=== PATIENT | female | born 1935 | race Caucasian/White ===

== ENCOUNTER 2017-06-27 14:50 | Inpatient (IN) | payer MEDICARE, BC ==
[2017-06-27] MEDS ORDERED: Sodium Chloride 0.9% 1,000 ML IV ONE (15:45)
[2017-06-27] MEDS ORDERED: Ondansetron 4 MG/2 ML SDV IVPUSH ONE (15:45)
--- NOTE | 2017-06-27 16:17 | EDM.PDOC ---
ED HPI GENERAL MEDICAL PROBLEM - General Chief Complaint: Abdominal Pain Stated Complaint: VOMITING Time Seen by Provider: 06/27/17 15:26 Source of Information: Reports: Patient History Limitations: Reports: No Limitations - History of Present Illness INITIAL COMMENTS - FREE TEXT/NARRATIVE: 81-year-old female presents for evaluation and treatment of vomiting and epigastric pain. Patient reports that her symptoms started Friday evening. She states that she did not feel well on Friday. She reports discomfort and burning pain in the epigastric area. She states her symptoms have worsened she' s now been vomiting. She also reports she had a "little bit" of diarrhea on Friday and Friday. She also reports a cough. No chest pain, shortness of breath, lightheadedness, syncope, dizziness, hematochezia or hematemesis. Reports her last bowel movement today. Reports that her stools have been more of a blackish green color. Patient did have an influenza vaccine this year. Duration: Day(s): (3) Upper Abdomen Pain Score (Numeric/FACES): 9 - Related Data Allergies Allergy/AdvReac Type Severity Reaction Status Date / Time codeine Allergy Difficulty Verified 06/27/17 16:22 Breathing esomeprazole magnesium Allergy Edema Verified 06/27/17 16:22 [From Nexium] losartan potassium Allergy Hives Verified 06/27/17 16:22 [From Cozaar] COLLINS Inhibitors AdvReac Diarrhea Verified 06/27/17 16:22 aspirin AdvReac Fatigue Verified 06/27/17 16:22 erythromycin base AdvReac Nausea and Verified 06/27/17 16:22 Vomiting meperidine HCl [From Demerol] AdvReac Irritabilit Verified 06/27/17 16:22 y Home Meds: Home Meds Omeprazole 20 mg PO QAM 01/24/15 [History] Ondansetron HCl [Zofran] 4 mg PO Q6HR PRN 01/24/15 [History] Carboxymethylcellulos/Glycerin [Lubricant 0.5-0.9% Eye Drops] 2 drop EYEBOTH TID PRN 01/25/15 [History] Pravastatin [Pravachol] 20 mg PO BEDTIME 01/25/15 [History] Past Medical History Cardiovascular History: Reports: High Cholesterol Other Cardiovascular History: not on meds anymore and is controlling it by diet. Gastrointestinal History: Reports: GERD, Hemorrhoids Genitourinary History: Reports: UTI, Recurrent Musculoskeletal History: Reports: Back Pain, Chronic - Past Surgical History HEENT Surgical History: Reports: Cataract Surgery Other HEENT Surgeries/Procedures: bi-lat eyes GI Surgical History: Reports: Cholecystectomy, Colonoscopy, Other (See Below) Other GI Surgeries/Procedures: small hernis to abdomen Social & Family History - Tobacco Use Smoking Status *Q: Never Smoker Second Hand Smoke Exposure: No - Caffeine Use Caffeine Use: Reports: None - Recreational Drug Use Recreational Drug Use: No ED ROS GENERAL - Review of Systems Review Of Systems: See Below Constitutional: Reports: Malaise Respiratory: Reports: Cough. Denies: Shortness of Breath Cardiovascular: Denies: Chest Pain, Lightheadedness GI/Abdominal: Reports: Abdominal Pain, Diarrhea, Decreased Appetite, Nausea, Vomiting Neurological: Denies: Dizziness, Headache, Syncope ED EXAM, GI/ABD - Physical Exam Exam: See Below Exam Limited By: No Limitations General Appearance: Alert, WD/WN, Moderate Distress Eyes: Bilateral: Normal Appearance Ears: Normal External Exam Nose: Normal Inspection Throat/Mouth: Normal Inspection, Normal Lips, Normal Voice, No Airway Compromise Neck: Normal Inspection Respiratory/Chest: No Respiratory Distress, Lungs Clear, Normal Breath Sounds Cardiovascular: Normal Peripheral Pulses, Regular Rate, Rhythm, No Murmur GI/Abdominal Exam: Normal Bowel Sounds, Soft, Tender (tenderness in the upper left abdomen and epigastric) Neurological: Alert, Oriented, Normal Cognition Psychiatric: Normal Affect, Normal Mood Skin Exam: Warm, Dry, Normal Color EKG INTERPRETATION EKG Date: 06/27/17 Time: 17:15 Rhythm: NSR Rate (Beats/Min): 89 [place]: Normal P-Wave: Present QRS: Normal ST-T: Normal QT: Normal EKG Interpretation Comments: NSR at 89 bpm. PVCs. Prolonged QT interval. Reviewed by myself and Dr. Goodman. Course - Vital Signs Last Recorded V/S: Last Vital Signs Temp 36.3 C 06/27/17 15:23 Pulse 84 06/27/17 15:23 Resp 20 06/27/17 15:23 BP 197/95 H 06/27/17 15:23 Pulse Ox 96 06/27/17 15:23 Orthostatic Blood Pressure [ 149/78 Standing] Orthostatic Blood Pressure [ 142/99 Sitting] Orthostatic Blood Pressure [ 154/70 Supine] - Orders/Labs/Meds Orders: Active Orders 24 hr Category Date Time Status Cardiac Monitoring [RC] . DIRECTED Care 06/27/17 15:46 Active Communication Order [RC] STAT Care 06/27/17 16:22 Active EKG Documentation Completion [RC] ASDIRECTED Care 06/27/17 15:46 Active Orthostatic Vital Signs [RC] ASDIRECTED Care 06/27/17 16:15 Active Chest 1V Frontal [CR] Stat Exams 06/27/17 15:45 Taken Sodium Chloride 0.9% [Normal Saline] 100 ml Med 06/27/17 16:45 Active IV ASDIRECTED EKG 12 Lead [EK] Stat Ther 06/27/17 15:45 Ordered Medication Orders Sodium Chloride (Normal Saline) 100 mls @ 60 mls/hr IV ASDIRECTED VALERIE Last Admin: 06/27/17 16:55 Dose: 60 mls/hr Labs: Laboratory Tests 06/27/17 06/27/17 06/27/17 Range/Units 15:40 15:40 15:40 WBC 4.43 (3.98-10.04) K/mm3 RBC 4.87 (3.98-5.22) M/mm3 Hgb 14.9 (11.2-15.7) gm/L Hct 43.3 (34.1-44.9) % MCV 88.9 (79.4-94.8) fl MCH 30.6 (25.6-32.2) pg MCHC 34.4 (32.2-35.5) g/dl RDW Std Deviation 40.5 (36.4-46.3) fL Plt Count 179 L (182-369) K/mm3 MPV 10.0 (9.4-12.3) fl Neutrophils % (Manual) 76 H (40-60) % Band Neutrophils % 0 (0-10) % Lymphocytes % (Manual) 8 L (20-40) % Atypical Lymphs % 0 % Monocytes % (Manual) 16 H (2-10) % Eosinophils % (Manual) 0 L (0.7-5.8) % Basophils % (Manual) 0 L (0.1-1.2) Platelet Estimate Adequate Plt Morphology Comment Normal RBC Morph Comment Normal Sodium 128 L (136-145) mEq/L Potassium 3.6 (3.5-5.1) mEq/L Chloride 94 L (98-107) mEq/L Carbon Dioxide 23 (21-32) mEq/L Anion Gap 14.6 (5-15) BUN 12 (7-18) mg/dL Creatinine 1.2 H (0.55-1.02) mg/dL Est Cr Clr Drug Dosing 33.65 mL/min Estimated GFR (MDRD) 43 (>60) mL/min BUN/Creatinine Ratio 10.0 L (14-18) Glucose 119 H (83-115) mg/dL Calcium 9.1 (8.5-10.1) mg/dL Magnesium 1.5 L (1.8-2.4) mg/dl Total Bilirubin 0.6 (0.2-1.0) mg/dL AST 24 (15-37) U/L ALT 24 (14-59) U/L Alkaline Phosphatase 66 (46-116) U/L Troponin I < 0.017 (0.00-0.056) ng/mL C-Reactive Protein 2.5 H* (<1.0) mg/dL Total Protein 7.2 (6.4-8.2) g/dl Albumin 3.8 (3.4-5.0) g/dl Globulin 3.4 gm/dL Albumin/Globulin Ratio 1.1 (1-2) Lipase 143 (73-393) U/L Urine Color (Yellow) Urine Appearance (Clear) Urine pH (5.0-8.0) Ur Specific [place] (1.005-1.030) Urine Protein (Negative) Urine Glucose (UA) (Negative) Urine Ketones (Negative) Urine Occult Blood (Negative) Urine Nitrite (Negative) Urine Bilirubin (Negative) Urine Urobilinogen (0.2-1.0) Ur Leukocyte Esterase (Negative) Urine RBC (0-5) /hpf Urine WBC (0-5) /hpf Ur Epithelial Cells (0-5) /hpf Urine Bacteria (FEW) /hpf Urine Mucus (FEW) /hpf 06/27/ Range/Units 16:35 WBC (3.98-10.04) K/mm3 RBC (3.98-5.22) M/mm3 Hgb (11.2-15.7) gm/L Hct (34.1-44.9) % MCV (79.4-94.8) fl MCH (25.6-32.2) pg MCHC (32.2-35.5) g/dl RDW Std Deviation (36.4-46.3) fL Plt Count (182-369) K/mm3 MPV (9.4-12.3) fl Neutrophils % (Manual) (40-60) % Band Neutrophils % (0-10) % Lymphocytes % (Manual) (20-40) % Atypical Lymphs % % Monocytes % (Manual) (2-10) % Eosinophils % (Manual) (0.7-5.8) % Basophils % (Manual) (0.1-1.2) Platelet Estimate Plt Morphology Comment RBC Morph Comment Sodium (136-145) mEq/L Potassium (3.5-5.1) mEq/L Chloride (98-107) mEq/L Carbon Dioxide (21-32) mEq/L Anion Gap (5-15) BUN (7-18) mg/dL Creatinine (0.55-1.02) mg/dL Est Cr Clr Drug Dosing mL/min Estimated GFR (MDRD) (>60) mL/min BUN/Creatinine Ratio (14-18) Glucose (83-115) mg/dL Calcium (8.5-10.1) mg/dL Magnesium (1.8-2.4) mg/dl Total Bilirubin (0.2-1.0) mg/dL AST (15-37) U/L ALT (14-59) U/L Alkaline Phosphatase (46-116) U/L Troponin I (0.00-0.056) ng/mL C-Reactive Protein (<1.0) mg/dL Total Protein (6.4-8.2) g/dl Albumin (3.4-5.0) g/dl Globulin gm/dL Albumin/Globulin Ratio (1-2) Lipase (73-393) U/L Urine Color Yellow (Yellow) Urine Appearance Clear (Clear) Urine pH 6.0 (5.0-8.0) Ur Specific [place] 1.020 (1.005-1.030) Urine Protein Trace H (Negative) Urine Glucose (UA) Negative (Negative) Urine Ketones 2+ H (Negative) Urine Occult Blood 2+ H (Negative) Urine Nitrite Negative (Negative) Urine Bilirubin Negative (Negative) Urine Urobilinogen 0.2 (0.2-1.0) Ur Leukocyte Esterase Negative (Negative) Urine RBC 0-5 (0-5) /hpf Urine WBC 0-5 (0-5) /hpf Ur Epithelial Cells 0-5 (0-5) /hpf Urine Bacteria Few (FEW) /hpf Urine Mucus Moderate H (FEW) /hpf Meds: Medications Generic Name Dose Route Start Last Admin Trade Name Freq PRN Reason Stop Dose Admin Sodium Chloride 100 mls @ 60 mls/hr 06/27/17 16:45 06/27/17 16:55 Normal Saline IV 60 mls/hr ASDIRECTED VALERIE Administration Discontinued Medications Generic Name Dose Route Start Last Admin Trade Name Freq PRN Reason Stop Dose Admin Diatrizoate Meglum/Diatrizoate Sod 90 ml 06/27/17 16:36 06/27/17 16:53 Gastrografin 37% PO 06/27/17 16:37 90 ml ONETIME ONE Administration Sodium Chloride 1,000 mls @ 999 mls/hr 06/27/17 15:45 06/27/17 16:21 Normal Saline IV 06/27/17 16:45 999 mls/hr ONETIME ONE Infusion Iopamidol 90 ml 06/27/17 16:36 06/27/17 16:53 Isovue-370 (76%) IVPUSH 06/27/17 16:37 90 ml ONETIME ONE Administration Metoclopramide HCl 5 mg 06/27/17 17:33 06/27/17 17:42 Reglan IVPUSH 06/27/17 17:34 5 mg ONETIME ONE Administration Ondansetron HCl 4 mg 06/27/17 15:45 06/27/17 15:54 Zofran IVPUSH 06/27/17 15:46 4 mg ONETIME ONE Administration Sodium Chloride 10 ml 06/27/17 16:36 06/27/17 16:55 Saline Flush FLUSH 06/27/17 16:37 10 ml ONETIME ONE Administration - Radiology Interpretation Free Text/Narrative:: CT abdomen and pelvis Technique: Multiple axial sections were obtained from above the dome of the diaphragm inferiorly through the pubic symphysis. Intravenous and oral contrast has been given. Comparison: Previous noncontrast CT study of the abdomen and pelvis performed on 01/31/15. Findings: Visualized lung bases are clear. Moderately large hiatal hernia is seen. Liver shows no focal parenchymal abnormality. Small low density abnormality is noted within the spleen measuring 8 mm. This is vaguely seen on prior study but not as well seen previously but is still likely incidental. Low -density area is noted within the right kidney measuring 1 cm which is felt compatible with a cyst. Additional low density abnormality is seen seen more inferiorly within the right kidney measuring 1 cm which is felt compatible with additional cyst. There is scarring seen within the upper right kidney. Left kidney shows a small exophytic cyst measuring 1.0 cm. Adrenal glands show no nodule. Pancreas is within normal limits. Common bile duct mildly dilated at 1.5 cm which is likely residual from previous cholecystectomy. This finding is stable from prior exam. Aorta shows atherosclerotic change without aneurysmal dilatation. No retroperitoneal adenopathy or mesenteric abnormalities are seen. Small fat- containing umbilical hernia is seen. Appendix is seen which is normal. No pelvic mass or adenopathy is seen. Mild diverticulosis is seen within the sigmoid colon without inflammatory change of diverticulitis. No free fluid is seen. Delayed images shows contrast within nondilated distal ureters and contrast is also seen within the bladder. Bone window settings were reviewed which shows scattered degenerative change throughout the spine. Impression: 1. Incidental findings as noted above. Nothing acute is felt to be present. Chest: Portable view of the chest was obtained. Comparison: No prior chest x-ray. Soft tissue density seen behind the heart most likely due to small hiatal hernia. Heart size is normal. Tortuous thoracic aorta is seen. Lungs are clear. Bony structures are grossly intact. Impression: 1. Incidental findings. Nothing acute is identified on portable chest x-ray. - Re-Assessments/Exams Free Text/Narrative Re-Assessment/Exam: 06/27/17 18:47 Influenza returned positive with type A. Given the patient's positive influenza, hyponatremia and hypomagnesemia I do feel that she should come in to the hospital for short stay. She lives at home by herself. Patient agrees to this. Discussed the case with Dr. An [facility] director of occupational health. Agrees to the admission. Departure - Departure Time of Disposition: 19:00 Disposition: Admitted As Inpatient 67 Condition: Poor Clinical Impression: Dehydration, Hyponatremia, Nausea & vomiting, Hypomagnesemia, Influenza A - Discharge Information Referrals: Ginny Puga MD [Primary Care Provider] - Forms: ED Department Discharge Additional Instructions: Patient admitted to the hospital under Dr. An. - My Orders Last 24 Hours: My Active Orders 06/27/17 15:45 Chest 1V Frontal [CR] Stat EKG 12 Lead [EK] Stat 06/27/17 15:46 Cardiac Monitoring [RC] . DIRECTED EKG Documentation Completion [RC] ASDIRECTED 06/27/17 16:15 Orthostatic Vital Signs [RC] ASDIRECTED 06/27/17 16:22 Communication Order [RC] STAT 06/27/17 16:45 Sodium Chloride 0.9% [Normal Saline] 100 ml IV ASDIRECTED - Assessment/Plan Last 24 Hours: My Active Orders 06/27/17 15:45 Chest 1V Frontal [CR] Stat EKG 12 Lead [EK] Stat 06/27/17 15:46 Cardiac Monitoring [RC] . DIRECTED EKG Documentation Completion [RC] ASDIRECTED 06/27/17 16:15 Orthostatic Vital Signs [RC] ASDIRECTED 06/27/17 16:22 Communication Order [RC] STAT 06/27/17 16:45 Sodium Chloride 0.9% [Normal Saline] 100 ml IV ASDIRECTED
[2017-06-27] MEDS ORDERED: Diatrizoate Meglumine/Diatrizoate Sodium 37% 120 ML Bottle PO ONE (16:36)
[2017-06-27] MEDS ORDERED: Sodium Chloride 0.9% 10 ML Syringe FLUSH ONE (16:36)
[2017-06-27] MEDS ORDERED: Iopamidol 755 Mg/ML 100 ML Bottle IVPUSH ONE (16:36)
[2017-06-27] MEDS ORDERED: Sodium Chloride 0.9% 100 ML IV SCH (16:45)
[2017-06-27] MEDS ORDERED: Metoclopramide 10 MG/2 ML SDV IVPUSH ONE (17:33)
--- NOTE | 2017-06-27 17:36 | CT ---
CT abdomen and pelvis Technique: Multiple axial sections were obtained from above the dome of the diaphragm inferiorly through the pubic symphysis. Intravenous and oral contrast has been given. Comparison: Previous noncontrast CT study of the abdomen and pelvis performed on 01/31/15. Findings: Visualized lung bases are clear. Moderately large hiatal hernia is seen. Liver shows no focal parenchymal abnormality. Small low density abnormality is noted within the spleen measuring 8 mm. This is vaguely seen on prior study but not as well seen previously but is still likely incidental. Low-density area is noted within the right kidney measuring 1 cm which is felt compatible with a cyst. Additional low density abnormality is seen seen more inferiorly within the right kidney measuring 1 cm which is felt compatible with additional cyst. There is scarring seen within the upper right kidney. Left kidney shows a small exophytic cyst measuring 1.0 cm. Adrenal glands show no nodule. Pancreas is within normal limits. Common bile duct mildly dilated at 1.5 cm which is likely residual from previous cholecystectomy. This finding is stable from prior exam. Aorta shows atherosclerotic change without aneurysmal dilatation. No retroperitoneal adenopathy or mesenteric abnormalities are seen. Small fat-containing umbilical hernia is seen. Appendix is seen which is normal. No pelvic mass or adenopathy is seen. Mild diverticulosis is seen within the sigmoid colon without inflammatory change of diverticulitis. No free fluid is seen. Delayed images shows contrast within nondilated distal ureters and contrast is also seen within the bladder. Bone window settings were reviewed which shows scattered degenerative change throughout the spine. Impression: 1. Incidental findings as noted above. Nothing acute is felt to be present. Diagnostic code #2
[2017-06-27] MEDS ORDERED: Ibuprofen 400 MG Tab PO PRN (20:45)
[2017-06-27] MEDS ORDERED: LORazepam 2 MG/ML MDV IV PRN (20:45)
[2017-06-27] MEDS ORDERED: Bisacodyl 5 MG Tab PO PRN (20:45)
[2017-06-27] MEDS ORDERED: Albuterol/Ipratropium 3.0-0.5 MG/3 ML Neb Soln NEB PRN (20:45)
[2017-06-27] MEDS ORDERED: Polyethylene Glycol 3350 Powder 17 GM Packet PO PRN (20:45)
[2017-06-27] MEDS ORDERED: Docusate Sodium 100 MG Cap PO PRN (20:45)
[2017-06-27] MEDS ORDERED: Promethazine 6.25 MG in Sodium Chloride 0.9% 50 ML IV PRN (20:45)
[2017-06-27] MEDS ORDERED: Hypromellose 0.5% Ophth Soln 15 ML Bottle EYEBOTH PRN (20:52)
[2017-06-27] MEDS ORDERED: Codeine/guaiFENesin 100-10 MG/5 ML Syrup 5 ML Cup PO PRN (20:54)
[2017-06-27] MEDS ORDERED: Benzocaine/Cetylpyridinium/Menthol Lozenge MUCMEM PRN (20:59)
[2017-06-27] MEDS ORDERED: Pneumococcal Polyvalent-23 Vaccine 0.5 ML SDV IM ONE (21:00)
[2017-06-27] MEDS ORDERED: Scopolamine 1.5 MG Transdermal Patch TRDERM PRN (21:01)
--- NOTE | 2017-06-27 21:04 | PCM.HP ---
H&P History of Present Illness - General Date of Service: 06/27/17 Admit Problem/Dx: Admission Diagnosis/Problem Admission Diagnosis/Problem Influenza due to influenza A virus Source of Information: Patient, Old Records, Provider, RN Notes Reviewed History Limitations: Reports: No Limitations - History of Present Illness Initial Comments - Free Text/Narative: This is an 81 yo pleasant elderly white female with past medical hx/o hypercholesterolemia, GERD, hemorrhoids, recurrent UTI, and chronic back pain who presents to the emergency department for evaluation of nausea and vomiting associated with cough, nasal congestion, epigastric pain and now watery diarrhea. Her symptoms started this past Friday and have progressively gotten worse. Patient still able to eat or drink. She denies any recent travel. No unusual diet or drinks. She denies any sick contact. She further denies any shortness of breath, chest pain, lightheadedness, syncope , dizziness, fever or chills. No skin rash, muscle aches or joint pains. Her initial workup in emergency department shows a CBC remarkable for platelet of 179, neutrophils of 76%, lymphocytes of 8%, and monocytes of 16%. Her UA is not suggestive for UTI. She was positive for influenza A. Chest x-ray shows no acute abnormal findings. Abdominal pelvis CT scan report reads nothing acute is felt to be present. Patient is being admitted for acute viral illness. She is CPR only. Upper Abdomen Pain Score (Numeric/FACES): 9 - Related Data Allergies/Adverse Reactions: Allergies Allergy/AdvReac Type Severity Reaction Status Date / Time codeine Allergy Difficulty Verified 06/27/17 20:41 Breathing esomeprazole magnesium Allergy Edema Verified 06/27/17 20:41 [From Nexium] losartan potassium Allergy Hives Verified 06/27/17 20:41 [From Cozaar] COLLINS Inhibitors AdvReac Diarrhea Verified 06/27/17 20:41 aspirin AdvReac Fatigue Verified 06/27/17 20:41 erythromycin base AdvReac Nausea and Verified 06/27/17 20:41 Vomiting meperidine HCl [From Demerol] AdvReac Irritabilit Verified 06/27/17 20:41 y Home Medications: Home Meds Omeprazole 20 mg PO QAM 01/24/15 [History] Ondansetron HCl [Zofran] 4 mg PO Q6HR PRN 01/24/15 [History] Carboxymethylcellulos/Glycerin [Lubricant 0.5-0.9% Eye Drops] 2 drop EYEBOTH TID PRN 01/25/15 [History] Pravastatin [Pravachol] 20 mg PO BEDTIME 01/25/15 [History] Past Medical History Cardiovascular History: Reports: High Cholesterol Other Cardiovascular History: not on meds anymore and is controlling it by diet. Gastrointestinal History: Reports: GERD, Hemorrhoids Genitourinary History: Reports: UTI, Recurrent BUSINESS TAX[employer] SPECIALIST History: Reports: Musculoskeletal History: Reports: Back Pain, Chronic Endocrine/Metabolic History: Reports: Obesity/BMI 30+ - Infectious Disease History Infectious Disease History: Reports: Chicken Pox, Influenza, Measles, Mumps - Past Surgical History HEENT Surgical History: Reports: Cataract Surgery Other HEENT Surgeries/Procedures: bi-lat eyes Cardiovascular Surgical History: Reports: None GI Surgical History: Reports: Cholecystectomy, Colonoscopy, Other (See Below) Other GI Surgeries/Procedures: small hernis to abdomen Female Surgical History: Reports: None Endocrine Surgical History: Reports: None Musculoskeletal Surgical History: Reports: None Social & Family History - Family History Family Medical History: Noncontributory - Tobacco Use Smoking Status *Q: Never Smoker Second Hand Smoke Exposure: No - Caffeine Use Caffeine Use: Reports: None - Recreational Drug Use Recreational Drug Use: No H&P Review of Systems - Review of Systems: Review Of Systems: See Below General: Reports: Malaise. Denies: Fever, Chills HEENT: Reports: Post Nasal Drip, Sinus Congestion, Other (Congestion). Denies: Contact Lenses, Dysphasia, Ear Pain, Eye Pain, Headaches, Hearing Changes, Sore Throat, Visual Changes Pulmonary: Reports: Cough Cardiovascular: Denies: Chest Pain, Palpitations, Dyspnea on Exertion Gastrointestinal: Reports: Abdominal Pain, Diarrhea, Decreased Appetite, Nausea , Vomiting Exam - Exam Exam: See Below - Vital Signs Vital Signs: Last Vital Signs Temp 36.3 C 06/27/17 15:23 Pulse 84 06/27/17 15:23 Resp 20 06/27/17 15:23 BP 197/95 H 06/27/17 15:23 Pulse Ox 96 06/27/17 15:23 Weight: 96.162 kg - Exam General: Alert, Oriented, Cooperative, Lethargic. No: Mild Distress HEENT: Conjunctiva Clear, EACs Clear, Hearing Intact, Mucosa Moist & [place], Nares Patent, Normal Nasal Septum, Posterior Pharynx Clear, Pupils Equal, Pupils Reactive, TMs Clear Neck: Supple, Trachea Midline, +2 Carotid Pulse wo Bruit Lungs: Clear to Auscultation, Normal Respiratory Effort Cardiovascular: Regular Rate, Regular Rhythm GI/Abdominal Exam: Normal Bowel Sounds, Soft, Non-Tender, No Organomegaly, No Distention, No Abnormal Bruit, No Mass, Tender. No: Guarding, Rigid, Rebound (Female) Exam: Deferred Rectal (Female) Exam: Deferred Back Exam: Normal Inspection, Decreased Range of Motion Extremities: Normal Inspection, Normal Range of Motion, Non-Tender, No Pedal Edema, Normal Capillary Refill Peripheral Pulses: 2+: Posterior Tibial (L), Posterior Tibial (R), Dorsalis Pedis (L), Dorsalis Pedis (R) Skin: Warm, Dry, Intact Neuro Extensive - Mental Status: Oriented x3, Normal Cognition, Memory Intact Neuro Extensive - Motor, Sensory, Reflexes: CN II-XII Intact, Normal Gait Psychiatric: Alert, Normal Affect, Normal Mood - Patient Data Result Diagrams: 06/28/17 05:55 06/27/17 15:40 EKG INTERPRETATION EKG Date: 06/27/17 Time: 17:15 Rhythm: NSR Rate (Beats/Min): 89 [place]: Normal P-Wave: Present QRS: Normal ST-T: Normal QT: Prolonged *Q Meaningful Use (ADM) - VTE *Q VTE Criteria *Q: - Stroke *Q Stroke Criteria *Q: - AMI *Q AMI Criteria *Q: Problem List Initiated/Reviewed/Updated: Yes Orders Last 24hrs: Active Orders 24 hr Category Date Time Status Patient Status [ADT] Routine ADT 06/27/17 19:54 Active Antiembolic Devices [RC] PER UNIT ROUTINE Care 06/27/17 20:50 Ordered Height and Weight [RC] DAILY Care 06/27/17 20:45 Ordered Intake and Output [RC] QSHIFT Care 06/27/17 20:48 Ordered Oxygen Therapy [RC] PRN Care 06/27/17 20:45 Ordered RT Aerosol Therapy [RC] ASDIRECTED Care 06/27/17 20:50 Ordered Up With Assistance [RC] ASDIRECTED Care 06/27/17 20:45 Ordered VTE/DVT Education [RC] PER UNIT ROUTINE Care 06/27/17 20:45 Ordered Vital Signs [RC] Q4H Care 06/27/17 20:45 Ordered Consult to Medical Chief Technician [CONS] Routine Cons 06/27/17 20:51 Ordered OT Evaluation and Treatment [CONS] Routine Cons 06/27/17 20:51 Ordered PT Evaluation and Treatment [CONS] Routine Cons 06/27/17 20:51 Ordered Regular Diet [DIET] Diet 06/27/17 Dinner Ordered BASIC METABOLIC PANEL,BMP [CHEM] AM Lab 06/28/17 05:11 Ordered BASIC METABOLIC PANEL,BMP [CHEM] AM Lab 06/29/17 05:11 Ordered BASIC METABOLIC PANEL,BMP [CHEM] AM Lab 06/30/17 05:11 Ordered C-REACTIVE PROTEIN [CHEM] AM Lab 06/28/17 05:11 Ordered C-REACTIVE PROTEIN [CHEM] AM Lab 06/29/17 05:11 Ordered C-REACTIVE PROTEIN [CHEM] AM Lab 06/30/17 05:11 Ordered CBC WITH AUTO DIFF [HEME] AM Lab 06/28/17 05:11 Ordered CBC WITH AUTO DIFF [HEME] AM Lab 06/29/17 05:11 Ordered CBC WITH AUTO DIFF [HEME] AM Lab 06/30/17 05:11 Ordered CULTURE SPUTUM + SMEAR [RM] Routine Lab 06/27/17 20:57 Uncollected MAGNESIUM [CHEM] AM Lab 06/28/17 05:11 Ordered MAGNESIUM [CHEM] AM Lab 06/29/17 05:11 Ordered MAGNESIUM [CHEM] AM Lab 06/30/17 05:11 Ordered Albuterol/Ipratropium [DuoNeb 3.0-0.5 MG/3 ML] Med 06/27/17 20:45 Ordered 3 ml NEB Q4H PRN Bisacodyl [Dulcolax] Med 06/27/17 20:45 Ordered 5 mg PO DAILY PRN Carboxymethylcellulos/Glycerin [Lubricant 0.5-0.9% Eye Med 06/27/17 20:52 Ordered Drops] 2 drop EYEBOTH TID PRN Codeine/guaiFENesin [Robitussin AC] Med 06/27/17 20:54 Ordered 5 ml PO Q4H PRN Dextrose 5%-Normal Saline @ 100 MLS/HR(1000ml) Med 06/27/17 21:00 Ordered Dextrose 5%-0.9% NaCl [Dextrose 5%-Normal Saline] 1,000 ml IV ASDIRECTED Docusate Sodium [Colace] Med 06/27/17 20:45 Ordered 100 mg PO BID PRN Docusate Sodium/Sennosides [Senna Plus] Med 06/27/17 20:45 Ordered 1 tab PO BID PRN HYDROmorphone [Dilaudid] Med 06/27/17 20:45 Ordered 0.25 mg IVPUSH Q2H PRN Ibuprofen [Motrin] Med 06/27/17 20:45 Ordered 400 mg PO Q6H PRN LORazepam [Ativan] Med 06/27/17 20:45 Ordered 0.25 mg IV Q6H PRN Loratadine [Claritin] Med 06/27/17 21:00 Ordered 10 mg PO BEDTIME Megestrol [Megace 40 MG/ML Susp] Med 06/28/17 09:00 Ordered 400 mg PO DAILY Multivitamins,Therapeutic [Thera] Med 06/28/17 09:00 Ordered 1 each PO DAILY Omeprazole Med 06/28/17 08:00 Ordered 20 mg PO QAM Ondansetron [Zofran] Med 06/27/17 20:45 Ordered 4 mg IV Q4H PRN Oxymetazoline [Afrin Original 0.05% Nasal [place]] Med 06/27/17 20:54 Ordered 15 ml RAMY Q12HR PRN Pneumococcal Polyvalent-23 Vac [Pneumovax 23] Med 06/27/17 20:45 Once 0.5 ml IM .ONCE ONE Polyethylene Glycol 3350 [MiraLAX] Med 06/27/17 20:45 Ordered 17 gm PO DAILY PRN Pravastatin Med 06/27/17 21:00 Ordered 20 mg PO BEDTIME Promethazine [Phenergan] 6.25 mg Med 06/27/17 20:45 Ordered Sodium Chloride 0.9% [Normal Saline] 50 ml IV Q6H Temazepam [Restoril] Med 06/27/17 20:45 Ordered 7.5 mg PO BEDTIME PRN oxyCODONE Med 06/27/17 20:45 Ordered 5 mg PO Q4H PRN Sequential Compression Device [OM.PC] Per Unit Routine Oth 06/27/17 20:48 Ordered Resuscitation Status Routine Resus Stat 06/27/17 20:45 Ordered Medication Orders Albuterol/Ipratropium (Duoneb 3.0-0.5 Mg/3 Ml) 3 ml NEB Q4H PRN PRN Reason: Shortness Of Breath/wheezing Bisacodyl (Dulcolax) 5 mg PO DAILY PRN PRN Reason: Constipation Docusate Sodium (Colace) 100 mg PO BID PRN PRN Reason: Constipation Guaifenesin/Codeine Phosphate (Robitussin Ac) 5 ml PO Q4H PRN PRN Reason: Cough Hydromorphone HCl (Dilaudid) 0.25 mg IVPUSH Q2H PRN PRN Reason: Pain (severe 7-10) Sodium Chloride (Normal Saline) 100 mls @ 60 mls/hr IV ASDIRECTED [facility] Last Admin: 06/27/17 16:55 Dose: 60 mls/hr Promethazine HCl 6.25 mg/ (Sodium Chloride) 50.25 mls @ 100 mls/hr IV Q6H PRN PRN Reason: Nausea/Vomiting Dextrose/Sodium Chloride (Dextrose 5%-Normal Saline) 1,000 mls @ 100 mls/hr IV ASDIRECTED [facility] Ibuprofen (Motrin) 400 mg PO Q6H PRN PRN Reason: Pain (mild 1-3) Loratadine (Claritin) 10 mg PO BEDTIME [facility] Lorazepam (Ativan) 0.25 mg IV Q6H PRN PRN Reason: Anxiety Megestrol Acetate (Megace 40 Mg/Ml Susp) 400 mg PO DAILY [facility] Multivitamins (Thera) 1 each PO DAILY [facility] Non-Formulary Medication (Carboxymethylcellulos/Glycerin [Lubricant 0.5-0.9% Eye Drops]) 2 drop EYEBOTH TID PRN PRN Reason: Dry Eyes Non-Formulary Medication (Omeprazole) 20 mg PO QAM [facility] Non-Formulary Medication (Pravastatin) 20 mg PO BEDTIME [facility] Ondansetron HCl (Zofran) 4 mg IV Q4H PRN PRN Reason: Nausea/Vomiting Oxycodone HCl (Oxycodone) 5 mg PO Q4H PRN PRN Reason: Pain (moderate 4-6) Oxymetazoline HCl (Afrin Original 0.05% Nasal [place]) 15 ml RAMY Q12HR PRN PRN Reason: Congestion Pneumococcal Polyvalent Vaccine (Pneumovax 23) 0.5 ml IM .ONCE ONE Stop: 06/27/17 21:01 Polyethylene Glycol (Miralax) 17 gm PO DAILY PRN PRN Reason: Constipation Senna/Docusate Sodium (Senna Plus) 1 tab PO BID PRN PRN Reason: Constipation Temazepam (Restoril) 7.5 mg PO BEDTIME PRN PRN Reason: Sleep Assessment/Plan Comment:: Assessment/Plan: Acute: Influenza A Infection - Onset of illness was Friday - No Antiviral recommended; she is now outside the 48 hrs window - Continue supportive care URI - likely 2/2 Viral Illness - Nasal congestion, cough, feels "gaggy" (hyperactive gag reflex) - Clear oropharyngeal exam - Afrin nasal spray PRN BID, Guaifenasin/Codeine 5 mf po Q4 PRN, Cepacol 1 tab po Q4H for sore throat - Supportive care Mild Hyponatremia - Na 128 - Currently hydrating with D5NS at 100 cc/hr - Salt tab 1 tab po BID - Monitor Hypomagnesemia - Mg 1.5 - Pharmacy to replete and monitor Abn/Pelvis CT Scan Ffindings - Moderately large hiatal hernia - Small low-density measuring a centimeter in the spleen - Low density area within the right kidney measuring 1 cm felt to be a cyst - Low-density abnormality inferior routine the right kidney measuring 1 cm felt to be an additional cyst - Scarring seen within the right upper kidney - Left kidney shows a small exophytic cyst measuring 1 cm - Aorta shows atherosclerotic changes without aneurysmal dilatation - Small fat-containing umbilical hernia - Mild diverticulosis within the sigmoid colon without inflammatory change of the diverticulitis Chronic: HLD GERD Recurrent UTI Back Pain Plan; Admit to Med-Surg Resume Home Meds Regular diet Routine AM Labs PT/OT consult for d/c planning Code status: CPR only
[2017-06-27] MEDS ORDERED: Magnesium Sulfate/Water 2 GM in Premix Bag 1 BAG IV ONE (21:32)
[2017-06-27] MEDS: Potassium Chloride/Sodium Chloride Tab PO SCH (21:48)
[2017-06-27] MEDS: Loratadine 10 MG Tab PO SCH (21:49)
[2017-06-27] MEDS: Simvastatin 10 MG Tab PO SCH (21:49)
[2017-06-27] MEDS: Oxymetazoline 0.05% Nasal Spray 15 ML Bottle NAS PRN (21:51)
[2017-06-28] MEDS: Dextrose 5%-0.9% NaCl 1,000 ML IV SCH ×3 (00:15→20:01)
[2017-06-28] MEDS: Temazepam 7.5 MG Cap PO PRN (00:52)
--- NOTE | 2017-06-28 06:54 | PCM.PN ---
- General Info Date of Service: 06/28/17 Admission Dx/Problem (Free Text): Admission Diagnosis/Problem Admission Diagnosis/Problem Influenza due to influenza A virus Subjective Update: Follow Up Functional Status: Reports: Pain Controlled, Ambulating, Urinating. Denies: New Symptoms - Review of Systems General: Reports: Malaise. Denies: Fever, Chills HEENT: Reports: No Symptoms Pulmonary: Reports: Shortness of Breath Gastrointestinal: Reports: Decreased Appetite, Vomiting. Denies: Abdominal Pain , Difficulty Swallowing Genitourinary: Reports: No Symptoms Musculoskeletal: Reports: No Symptoms Skin: Denies: Cyanosis, Mottled, Pallor, Diaphoresis, Rash Neurological: Denies: Confusion, Difficulty Walking, Weakness, Gait Disturbance Psychiatric: Denies: Anxiety, Agitation, Hallucinations Systems Review Comment:: No overnight issues. She slept pretty good. However she got nauseous and vomited this morning after taking in megace. She did not like the taste. Currently, her symptoms are easing up. She denies any other complaints. Her K is slightly low at 3.4. - Patient Data Vitals - Most Recent: Last Vital Signs Temp 36.7 C 06/28/17 00:51 Pulse 68 06/28/17 00:51 Resp 18 06/28/17 00:51 BP 125/44 L 06/28/17 00:51 Pulse Ox 96 06/28/17 00:51 Weight - Most Recent: 96.162 kg Lab Results Last 24 Hours: Laboratory Results - last 24 hr 06/28/17 Range/Units 05:55 WBC 4.40 (3.98-10.04) K/mm3 RBC 4.83 (3.98-5.22) M/mm3 Hgb 14.5 (11.2-15.7) gm/L Hct 43.9 (34.1-44.9) % MCV 90.9 (79.4-94.8) fl MCH 30.0 (25.6-32.2) pg MCHC 33.0 (32.2-35.5) g/dl RDW Std Deviation 41.9 (36.4-46.3) fL Plt Count 186 (182-369) K/mm3 MPV 10.1 (9.4-12.3) fl Neut % (Auto) 73.6 H (34.0-71.1) % Lymph % (Auto) 10.5 L (19.3-51.7) % [place] % (Auto) 14.5 H (4.7-12.5) % Eos % (Auto) 0.5 L (0.7-5.8) Baso % (Auto) 0.2 (0.1-1.2) % Neut # (Auto) 3.24 (1.56-6.13) K/mm3 Lymph # (Auto) 0.46 L (1.18-3.74) K/mm3 [place] # (Auto) 0.64 H (0.24-0.36) K/mm3 Eos # (Auto) 0.02 L (0.04-0.36) K/mm3 Baso # (Auto) 0.01 (0.01-0.08) K/mm3 Med Orders - Current: Current Medications Albuterol/Ipratropium (Duoneb 3.0-0.5 Mg/3 Ml) 3 ml NEB Q4H PRN PRN Reason: Shortness Of Breath/wheezing Artificial Tears (Isopto Tears 0.5% Ophth Soln) 0 ml EYEBOTH TID PRN PRN Reason: Dry Eyes Benzocaine/Menthol (Cepacol Sore Throat) 1 lozenge MUCMEM Q4HR PRN PRN Reason: Sore Throat Last Admin: 06/27/17 21:53 Dose: 1 lozenge Bisacodyl (Dulcolax) 5 mg PO DAILY PRN PRN Reason: Constipation Docusate Sodium (Colace) 100 mg PO BID PRN PRN Reason: Constipation Guaifenesin/Codeine Phosphate (Robitussin Ac) 5 ml PO Q4H PRN PRN Reason: Cough Last Admin: 06/27/17 22:09 Dose: 5 ml Hydromorphone HCl (Dilaudid) 0.25 mg IVPUSH Q2H PRN PRN Reason: Pain (severe 7-10) Promethazine HCl 6.25 mg/ (Sodium Chloride) 50.25 mls @ 100 mls/hr IV Q6H PRN PRN Reason: Nausea/Vomiting Dextrose/Sodium Chloride (Dextrose 5%-Normal Saline) 1,000 mls @ 100 mls/hr IV ASDIRECTED [facility] Last Admin: 06/28/17 00:15 Dose: 100 mls/hr Ibuprofen (Motrin) 400 mg PO Q6H PRN PRN Reason: Pain (mild 1-3) Last Admin: 06/27/17 22:08 Dose: 400 mg Loratadine (Claritin) 10 mg PO BEDTIME [facility] Last Admin: 06/27/17 21:49 Dose: 10 mg Lorazepam (Ativan) 0.25 mg IV Q6H PRN PRN Reason: Anxiety Megestrol Acetate (Megace 40 Mg/Ml Susp) 400 mg PO DAILY [facility] Multivitamins (Thera) 1 each PO DAILY [facility] Ondansetron HCl (Zofran) 4 mg IV Q4H PRN PRN Reason: Nausea/Vomiting Oral Electrolytes (Thermotabs) 1 each PO BIDMEALS [facility] Last Admin: 06/27/17 21:48 Dose: 1 each Oxycodone HCl (Oxycodone) 5 mg PO Q4H PRN PRN Reason: Pain (moderate 4-6) Oxymetazoline HCl (Afrin Original 0.05% Nasal [place]) 1 - 2 ml RAMY Q12HR PRN PRN Reason: Congestion Last Admin: 06/27/17 21:51 Dose: 1 spray Pantoprazole Sodium (Protonix) 40 mg PO DAILY@0700 [facility] Polyethylene Glycol (Miralax) 17 gm PO DAILY PRN PRN Reason: Constipation Scopolamine (Transderm-Scop) 1.5 mg TRDERM Q72H PRN PRN Reason: Nausea/Vomiting Senna/Docusate Sodium (Senna Plus) 1 tab PO BID PRN PRN Reason: Constipation Simvastatin (Zocor) 10 mg PO BEDTIME [facility] Last Admin: 06/27/17 21:49 Dose: Not Given Temazepam (Restoril) 7.5 mg PO BEDTIME PRN PRN Reason: Sleep Last Admin: 06/28/17 00:52 Dose: 7.5 mg Discontinued Medications Diatrizoate Meglum/Diatrizoate Sod (Gastrografin 37%) 90 ml PO ONETIME ONE Stop: 06/27/17 16:37 Last Admin: 06/27/17 16:53 Dose: 90 ml Sodium Chloride (Normal Saline) 1,000 mls @ 999 mls/hr IV ONETIME ONE Stop: 06/27/17 16:45 Last Infusion: 06/27/17 16:21 Dose: 999 mls/hr Sodium Chloride (Normal Saline) 100 mls @ 60 mls/hr IV ASDIRECTED [facility] Last Admin: 06/27/17 16:55 Dose: 60 mls/hr Magnesium Sulfate 2 gm/ Premix 50 mls @ 25 mls/hr IV ONETIME ONE Stop: 06/27/17 23:31 Last Admin: 06/27/17 21:49 Dose: 25 mls/hr Iopamidol (Isovue-370 (76%)) 90 ml IVPUSH ONETIME ONE Stop: 06/27/17 16:37 Last Admin: 06/27/17 16:53 Dose: 90 ml Metoclopramide HCl (Reglan) 5 mg IVPUSH ONETIME ONE Stop: 06/27/17 17:34 Last Admin: 06/27/17 17:42 Dose: 5 mg Ondansetron HCl (Zofran) 4 mg IVPUSH ONETIME ONE Stop: 06/27/17 15:46 Last Admin: 06/27/17 15:54 Dose: 4 mg Pneumococcal Polyvalent Vaccine (Pneumovax 23) 0.5 ml IM .ONCE ONE Stop: 06/27/17 21:01 Sodium Chloride (Saline Flush) 10 ml FLUSH ONETIME ONE Stop: 06/27/17 16:37 Last Admin: 06/27/17 16:55 Dose: 10 ml - Exam General: Alert, Oriented, Cooperative, No Acute Distress HEENT: Pupils Equal, Pupils Reactive, EOMI, Mucous Membr. Moist/[place] Neck: Supple, Trachea Midline, No JVD Lungs: Clear to Auscultation, Normal Respiratory Effort Cardiovascular: Regular Rate, Regular Rhythm GI/Abdominal Exam: Normal Bowel Sounds, Soft, Non-Tender, No Organomegaly, No Distention, No Abnormal Bruit, No Mass, Pelvis Stable (Female) Exam: Deferred Back Exam: Normal Inspection, Decreased Range of Motion Extremities: Normal Inspection, Normal Range of Motion, Non-Tender, No Pedal Edema, Normal Capillary Refill Peripheral Pulses: 2+: Dorsalis Pedis (L), Dorsalis Pedis (R) Skin: Warm, Dry, Intact Neurological: No New Focal Deficit Psy/Mental Status: Alert, Normal Affect, Normal Mood - Problem List Review Problem List Initiated/Reviewed/Updated: Yes - My Orders Last 24 Hours: My Active Orders 06/27/17 20:45 Height and Weight [RC] 04 Oxygen Therapy [RC] PRN Up With Assistance [RC] ASDIRECTED VTE/DVT Education [RC] PER UNIT ROUTINE Vital Signs [RC] 20,00,04,08,12,16 Albuterol/Ipratropium [DuoNeb 3.0-0.5 MG/3 ML] 3 ml NEB Q4H PRN Bisacodyl [Dulcolax] 5 mg PO DAILY PRN Docusate Sodium [Colace] 100 mg PO BID PRN Docusate Sodium/Sennosides [Senna Plus] 1 tab PO BID PRN HYDROmorphone [Dilaudid] 0.25 mg IVPUSH Q2H PRN Ibuprofen [Motrin] 400 mg PO Q6H PRN LORazepam [Ativan] 0.25 mg IV Q6H PRN Ondansetron [Zofran] 4 mg IV Q4H PRN Polyethylene Glycol 3350 [MiraLAX] 17 gm PO DAILY PRN Promethazine [Phenergan] 6.25 mg Sodium Chloride 0.9% [Normal Saline] 50 ml IV Q6H Temazepam [Restoril] 7.5 mg PO BEDTIME PRN oxyCODONE 5 mg PO Q4H PRN Resuscitation Status Routine 06/27/17 20:48 Intake and Output [RC] 04,16 Sequential Compression Device [OM.PC] Per Unit Routine 06/27/17 20:50 Antiembolic Devices [RC] PER UNIT ROUTINE RT Aerosol Therapy [RC] ASDIRECTED 06/27/17 20:51 Consult to Catering Cook [CONS] Routine OT Evaluation and Treatment [CONS] Routine PT Evaluation and Treatment [CONS] Routine 06/27/17 20:52 Hypromellose [Isopto Tears 0.5% Ophth Soln] 0 ml EYEBOTH TID PRN 06/27/17 20:54 Codeine/guaiFENesin [Robitussin AC] 5 ml PO Q4H PRN Oxymetazoline [Afrin Original 0.05% Nasal [place]] 1 - 2 ml RAMY Q12HR PRN 06/27/17 20:57 CULTURE SPUTUM + SMEAR [RM] Routine 06/27/17 20:59 Benzocaine/Cetylpyrd/Menthol [Cepacol Sore Throat] 1 lozenge MUCMEM Q4HR PRN 06/27/17 21:00 Dextrose 5%-0.9% NaCl [Dextrose 5%-Normal Saline] 1,000 ml IV ASDIRECTED Loratadine [Claritin] 10 mg PO BEDTIME Simvastatin [Zocor] 10 mg PO BEDTIME 06/27/17 21:01 Scopolamine [Transderm-Scop] 1.5 mg TRDERM Q72H PRN 06/27/17 21:23 Potassium Chloride/NaCl [Thermotabs] 1 each PO BIDMEALS 06/27/17 Dinner Regular Diet [DIET] 06/28/17 05:55 BASIC METABOLIC PANEL,BMP [CHEM] AM C-REACTIVE PROTEIN [CHEM] AM MAGNESIUM [CHEM] AM 06/28/17 07:00 Pantoprazole [ProTONIX] 40 mg PO DAILY@0700 06/28/17 09:00 Megestrol [Megace 40 MG/ML Susp] 400 mg PO DAILY Multivitamins,Therapeutic [Thera] 1 each PO DAILY 06/29/17 05:11 BASIC METABOLIC PANEL,BMP [CHEM] AM C-REACTIVE PROTEIN [CHEM] AM CBC WITH AUTO DIFF [HEME] AM MAGNESIUM [CHEM] AM 06/30/17 05:11 BASIC METABOLIC PANEL,BMP [CHEM] AM C-REACTIVE PROTEIN [CHEM] AM CBC WITH AUTO DIFF [HEME] AM MAGNESIUM [CHEM] AM - Plan Plan:: Assessment/Plan: Acute: Influenza A Infection - Onset of illness was Friday - No Antiviral recommended; she is now outside the 48 hrs window - Continue supportive care URI, Improved - likely 2/2 Viral Illness - Nasal congestion, cough, feels "gaggy" (hyperactive gag reflex) - Clear oropharyngeal exam - Continue Afrin nasal spray PRN BID, Guaifenasin/Codeine 5 mf po Q4 PRN, Cepacol 1 tab po Q4H for sore throat - Supportive care S/p Nausea/Vomiting - Medications induced - D/c Megace and start oral Marinol TID - PRN anti-emesis meds Mild Hypokalemia - K 3.4 - Pharmacy to replete and monitor Abn/Pelvis CT Scan Findings - Moderately large hiatal hernia - Small low-density measuring a centimeter in the spleen - Low density area within the right kidney measuring 1 cm felt to be a cyst - Low-density abnormality inferior routine the right kidney measuring 1 cm felt to be an additional cyst - Scarring seen within the right upper kidney - Left kidney shows a small exophytic cyst measuring 1 cm - Aorta shows atherosclerotic changes without aneurysmal dilatation - Small fat-containing umbilical hernia - Mild diverticulosis within the sigmoid colon without inflammatory change of the diverticulitis Resolved: Mild Hyponatremia - Na 128 --> 136 - Currently hydrating with D5NS at 100 cc/hr - Salt tab 1 tab po BID - Monitor Hypomagnesemia - Mg 1.5 --> 2.2 - Pharmacy to replete and monitor Chronic: HLD GERD Recurrent UTI Back Pain Plan; She looks clinically better Continue current treatment She have eat whatever she wants Routine AM Labs Continue PT/OT Additional orders as above SW for d/c planning Code status: CPR only Possible d/c in 1-2 days
[2017-06-28] MEDS: Ondansetron 4 MG/2 ML SDV IV PRN ×2 (07:38→13:26)
[2017-06-28] MEDS: Potassium Chloride/Sodium Chloride Tab PO SCH ×2 (07:38→17:57)
[2017-06-28] MEDS: Pantoprazole 40 MG Tab.CR PO SCH (07:39)
[2017-06-28] MEDS ORDERED: Megestrol Susp 40 MG/ML 10 ML UD Cup PO SCH (09:00)
[2017-06-28] MEDS: Multivitamins,Therapeutic Tab PO SCH (09:24)
[2017-06-28] MEDS: Oxymetazoline 0.05% Nasal Spray 15 ML Bottle NAS PRN (09:29)
[2017-06-28] MEDS: Dronabinol 2.5 MG Cap PO SCH ×2 (13:16→17:57)
[2017-06-28] MEDS: oxyCODONE 5 MG Tab PO PRN (13:26)
[2017-06-28] MEDS ORDERED: Potassium Chloride 20 MEQ Tab.ER PO ONE (16:33)
[2017-06-28] MEDS: Simvastatin 10 MG Tab PO SCH (20:02)
[2017-06-28] MEDS: Loratadine 10 MG Tab PO SCH (20:03)
[2017-06-29] MEDS: oxyCODONE 5 MG Tab PO PRN ×5 (00:59→21:27)
--- NOTE | 2017-06-29 05:52 | PCM.PN ---
- General Info Date of Service: 06/29/17 Admission Dx/Problem (Free Text): Admission Diagnosis/Problem Admission Diagnosis/Problem Influenza due to influenza A virus Subjective Update: Follow Up Functional Status: Reports: Pain Controlled, Tolerating Diet, Ambulating, Urinating. Denies: New Symptoms - Review of Systems General: Reports: Malaise. Denies: Fever HEENT: Reports: No Symptoms Pulmonary: Denies: Shortness of Breath Cardiovascular: Denies: No Symptoms Gastrointestinal: Reports: Decreased Appetite, Nausea. Denies: Abdominal Pain, Difficulty Swallowing, Vomiting Genitourinary: Reports: No Symptoms Musculoskeletal: Reports: No Symptoms Skin: Denies: Cyanosis, Mottled, Pallor, Diaphoresis, Rash Neurological: Denies: Confusion, Difficulty Walking, Weakness, Gait Disturbance Psychiatric: Denies: No Symptoms, Anxiety, Hallucinations Systems Review Comment:: She is still nauseous from time to time. She did not sleep well last night due to chronic back pain but its better now and rates it at 1/20 after receiving pain pill gusset edger. She still does not have good appetite. She is comfortable siting up in a chair. Her labs and vitals are fairly stable. - Patient Data Vitals - Most Recent: Last Vital Signs Temp 37.6 C 06/29/17 05:01 Pulse 66 06/29/17 05:01 Resp 16 06/29/17 05:01 BP 139/63 06/29/17 05:02 Pulse Ox 94 L 06/29/17 05:01 Weight - Most Recent: 96.026 kg I&O - Last 24 Hours: Intake & Output 06/28/17 06/28/17 06/29/17 14:59 22:59 06:59 Intake Total 300 3381 2492 Output Total 500 1650 Balance 300 2881 842 Lab Results Last 24 Hours: Laboratory Results - last 24 hr 06/28/17 06/28/17 Range/Units 05:55 05:55 WBC 4.40 (3.98-10.04) K/mm3 RBC 4.83 (3.98-5.22) M/mm3 Hgb 14.5 (11.2-15.7) gm/L Hct 43.9 (34.1-44.9) % MCV 90.9 (79.4-94.8) fl MCH 30.0 (25.6-32.2) pg MCHC 33.0 (32.2-35.5) g/dl RDW Std Deviation 41.9 (36.4-46.3) fL Plt Count 186 (182-369) K/mm3 MPV 10.1 (9.4-12.3) fl Neut % (Auto) 73.6 H (34.0-71.1) % Lymph % (Auto) 10.5 L (19.3-51.7) % [place] % (Auto) 14.5 H (4.7-12.5) % Eos % (Auto) 0.5 L (0.7-5.8) Baso % (Auto) 0.2 (0.1-1.2) % Neut # (Auto) 3.24 (1.56-6.13) K/mm3 Lymph # (Auto) 0.46 L (1.18-3.74) K/mm3 [place] # (Auto) 0.64 H (0.24-0.36) K/mm3 Eos # (Auto) 0.02 L (0.04-0.36) K/mm3 Baso # (Auto) 0.01 (0.01-0.08) K/mm3 Sodium 136 (136-145) mEq/L Potassium 3.4 L (3.5-5.1) mEq/L Chloride 101 (98-107) mEq/L Carbon Dioxide 27 (21-32) mEq/L Anion Gap 11.4 (5-15) BUN 9 (7-18) mg/dL Creatinine 1.3 H (0.55-1.02) mg/dL Est Cr Clr Drug Dosing 31.06 mL/min Estimated GFR (MDRD) 39 (>60) mL/min BUN/Creatinine Ratio 6.9 L (14-18) Glucose 102 (83-115) mg/dL Calcium 8.3 L (8.5-10.1) mg/dL Magnesium 2.2 (1.8-2.4) mg/dl C-Reactive Protein 3.5 H* (<1.0) mg/dL Med Orders - Current: Current Medications Albuterol/Ipratropium (Duoneb 3.0-0.5 Mg/3 Ml) 3 ml NEB Q4H PRN PRN Reason: Shortness Of Breath/wheezing Artificial Tears (Isopto Tears 0.5% Ophth Soln) 0 ml EYEBOTH TID PRN PRN Reason: Dry Eyes Benzocaine/Menthol (Cepacol Sore Throat) 1 lozenge MUCMEM Q4HR PRN PRN Reason: Sore Throat Last Admin: 06/27/17 21:53 Dose: 1 lozenge Bisacodyl (Dulcolax) 5 mg PO DAILY PRN PRN Reason: Constipation Docusate Sodium (Colace) 100 mg PO BID PRN PRN Reason: Constipation Dronabinol (Marinol) 2.5 mg PO TIDMEALS [facility] Last Admin: 06/28/17 17:57 Dose: 2.5 mg Guaifenesin/Codeine Phosphate (Robitussin Ac) 5 ml PO Q4H PRN PRN Reason: Cough Last Admin: 06/27/17 22:09 Dose: 5 ml Hydromorphone HCl (Dilaudid) 0.25 mg IVPUSH Q2H PRN PRN Reason: Pain (severe 7-10) Promethazine HCl 6.25 mg/ (Sodium Chloride) 50.25 mls @ 100 mls/hr IV Q6H PRN PRN Reason: Nausea/Vomiting Dextrose/Sodium Chloride (Dextrose 5%-Normal Saline) 1,000 mls @ 100 mls/hr IV ASDIRECTED [facility] Last Admin: 06/28/17 20:01 Dose: 100 mls/hr Ibuprofen (Motrin) 400 mg PO Q6H PRN PRN Reason: Pain (mild 1-3) Last Admin: 06/27/17 22:08 Dose: 400 mg Loratadine (Claritin) 10 mg PO BEDTIME [facility] Last Admin: 06/28/17 20:03 Dose: 10 mg Lorazepam (Ativan) 0.25 mg IV Q6H PRN PRN Reason: Anxiety Multivitamins (Thera) 1 each PO DAILY [facility] Last Admin: 06/28/17 09:24 Dose: 1 each Ondansetron HCl (Zofran) 4 mg IV Q4H PRN PRN Reason: Nausea/Vomiting Last Admin: 06/28/17 13:26 Dose: 4 mg Oral Electrolytes (Thermotabs) 1 each PO BIDMEALS [facility] Last Admin: 06/28/17 17:57 Dose: 1 each Oxycodone HCl (Oxycodone) 5 mg PO Q4H PRN PRN Reason: Pain (moderate 4-6) Last Admin: 06/29/17 00:59 Dose: 5 mg Oxymetazoline HCl (Afrin Original 0.05% Nasal [place]) 1 - 2 ml RAMY Q12HR PRN PRN Reason: Congestion Last Admin: 06/28/17 09:29 Dose: 1 spray Pantoprazole Sodium (Protonix) 40 mg PO DAILY@0700 [facility] Last Admin: 06/28/17 07:39 Dose: 40 mg Polyethylene Glycol (Miralax) 17 gm PO DAILY PRN PRN Reason: Constipation Scopolamine (Transderm-Scop) 1.5 mg TRDERM Q72H PRN PRN Reason: Nausea/Vomiting Senna/Docusate Sodium (Senna Plus) 1 tab PO BID PRN PRN Reason: Constipation Simvastatin (Zocor) 10 mg PO BEDTIME [facility] Last Admin: 06/28/17 20:02 Dose: 10 mg Temazepam (Restoril) 7.5 mg PO BEDTIME PRN PRN Reason: Sleep Last Admin: 06/28/17 00:52 Dose: 7.5 mg Discontinued Medications Diatrizoate Meglum/Diatrizoate Sod (Gastrografin 37%) 90 ml PO ONETIME ONE Stop: 06/27/17 16:37 Last Admin: 06/27/17 16:53 Dose: 90 ml Sodium Chloride (Normal Saline) 1,000 mls @ 999 mls/hr IV ONETIME ONE Stop: 06/27/17 16:45 Last Infusion: 06/27/17 16:21 Dose: 999 mls/hr Sodium Chloride (Normal Saline) 100 mls @ 60 mls/hr IV ASDIRECTED [facility] Last Admin: 06/27/17 16:55 Dose: 60 mls/hr Magnesium Sulfate 2 gm/ Premix 50 mls @ 25 mls/hr IV ONETIME ONE Stop: 06/27/17 23:31 Last Admin: 06/27/17 21:49 Dose: 25 mls/hr Iopamidol (Isovue-370 (76%)) 90 ml IVPUSH ONETIME ONE Stop: 06/27/17 16:37 Last Admin: 06/27/17 16:53 Dose: 90 ml Megestrol Acetate (Megace 40 Mg/Ml Susp) 400 mg PO DAILY [facility] Last Admin: 06/28/17 09:24 Dose: 400 mg Metoclopramide HCl (Reglan) 5 mg IVPUSH ONETIME ONE Stop: 06/27/17 17:34 Last Admin: 06/27/17 17:42 Dose: 5 mg Ondansetron HCl (Zofran) 4 mg IVPUSH ONETIME ONE Stop: 06/27/17 15:46 Last Admin: 06/27/17 15:54 Dose: 4 mg Pneumococcal Polyvalent Vaccine (Pneumovax 23) 0.5 ml IM .ONCE ONE Stop: 06/27/17 21:01 Potassium Chloride (Klor-Con M20) 40 meq PO ONETIME ONE Stop: 06/28/17 16:34 Last Admin: 06/28/17 17:57 Dose: 40 meq Sodium Chloride (Saline Flush) 10 ml FLUSH ONETIME ONE Stop: 06/27/17 16:37 Last Admin: 06/27/17 16:55 Dose: 10 ml - Exam General: Alert, Oriented, Cooperative, No Acute Distress HEENT: Pupils Equal, Pupils Reactive, EOMI, Mucous Membr. Moist/[place] Neck: Supple, Trachea Midline, No JVD, No Thyromegaly Lungs: Clear to Auscultation, Normal Respiratory Effort Cardiovascular: Regular Rate, Regular Rhythm GI/Abdominal Exam: Normal Bowel Sounds, Soft, Non-Tender, No Organomegaly, No Distention, No Abnormal Bruit, No Mass (Female) Exam: Deferred Back Exam: Normal Inspection, Decreased Range of Motion, Vertebral Tenderness Extremities: Normal Inspection, Normal Range of Motion, Non-Tender, No Pedal Edema, Normal Capillary Refill Peripheral Pulses: 2+: Dorsalis Pedis (L), Dorsalis Pedis (R) Skin: Warm, Dry, Intact Neurological: No New Focal Deficit Psy/Mental Status: Alert, Normal Affect, Normal Mood - Problem List Review Problem List Initiated/Reviewed/Updated: Yes - My Orders Last 24 Hours: My Active Orders 06/28/17 07:00 Pantoprazole [ProTONIX] 40 mg PO DAILY@0700 06/28/17 07:50 CULTURE SPUTUM + SMEAR [RM] Routine 06/28/17 09:00 Multivitamins,Therapeutic [Thera] 1 each PO DAILY 06/28/17 11:00 Dronabinol [Marinol] 2.5 mg PO TIDMEALS 06/28/17 11:03 JAVASCRIPT DEVELOPER Evaluation and Treatment [CONS] Routine 06/28/17 14:39 Heat Therapy [OM.PC] Routine 06/29/17 05:11 BASIC METABOLIC PANEL,BMP [CHEM] AM C-REACTIVE PROTEIN [CHEM] AM CBC WITH AUTO DIFF [HEME] AM MAGNESIUM [CHEM] AM 06/30/17 05:11 BASIC METABOLIC PANEL,BMP [CHEM] AM C-REACTIVE PROTEIN [CHEM] AM CBC WITH AUTO DIFF [HEME] AM MAGNESIUM [CHEM] AM - Plan Plan:: Assessment/Plan: Acute: Influenza A Infection - Onset of illness was Friday - No Antiviral recommended; she is now outside the 48 hrs window - Continue supportive care URI, Improved - likely 2/2 Viral Illness - Nasal congestion, cough, feels "gaggy" (hyperactive gag reflex) - Clear oropharyngeal exam - Continue Afrin nasal spray PRN BID, Guaifenasin/Codeine 5 mf po Q4 PRN, Cepacol 1 tab po Q4H for sore throat - Supportive care Nausea w/o Emesis - Medications induced - Continue oral Marinol TID; added low dose steroid x4 doses only - PRN anti-emesis meds Abn/Pelvis CT Scan Findings - Moderately large hiatal hernia - Small low-density measuring a centimeter in the spleen - Low density area within the right kidney measuring 1 cm felt to be a cyst - Low-density abnormality inferior routine the right kidney measuring 1 cm felt to be an additional cyst - Scarring seen within the right upper kidney - Left kidney shows a small exophytic cyst measuring 1 cm - Aorta shows atherosclerotic changes without aneurysmal dilatation - Small fat-containing umbilical hernia - Mild diverticulosis within the sigmoid colon without inflammatory change of the diverticulitis Resolved: Mild Hyponatremia - Na 128 -->136 - Currently hydrating with D5NS at 100 cc/hr - Salt tab 1 tab po BID - Monitor Hypomagnesemia - Mg 1.5 -->2.2 - Pharmacy to replete and monitor Mild Hypokalemia - K 3.4 -->3.8 - Pharmacy to replete and monitor Chronic: HLD GERD Recurrent UTI Back Pain Plan; She looks essentially the same as yesterday Continue current treatment Routine AM Labs Continue PT/OT Additional orders as above SW for d/c planning Code status: CPR only Possible d/c in AM hopefully her appetite by then is better
[2017-06-29] MEDS: Potassium Chloride/Sodium Chloride Tab PO SCH ×2 (06:14→17:31)
[2017-06-29] MEDS: Dextrose 5%-0.9% NaCl 1,000 ML IV SCH ×2 (06:14→17:33)
[2017-06-29] MEDS: Pantoprazole 40 MG Tab.CR PO SCH (06:14)
[2017-06-29] MEDS: Dronabinol 2.5 MG Cap PO SCH ×3 (06:14→17:32)
[2017-06-29] MEDS: Multivitamins,Therapeutic Tab PO SCH (09:19)
--- NOTE | 2017-06-29 10:10 | CR ---
Chest: Portable view of the chest was obtained. Comparison: No prior chest x-ray. Soft tissue density seen behind the heart most likely due to small hiatal hernia. Heart size is normal. Tortuous thoracic aorta is seen. Lungs are clear. Bony structures are grossly intact. Impression: 1. Incidental findings. Nothing acute is identified on portable chest x-ray. Diagnostic code #2
[2017-06-29] MEDS: Ondansetron 4 MG/2 ML SDV IV PRN ×2 (11:54→18:23)
[2017-06-29] MEDS ORDERED: Metoprolol Tartrate 5 MG/5 ML SDV IVPUSH PRN (12:15)
[2017-06-29] MEDS: HYDROmorphone 0.5 MG/0.5 ML Syringe IVPUSH PRN ×2 (13:10→18:22)
[2017-06-29] MEDS ORDERED: Dexamethasone 2 MG Tab PO SCH (17:00)
[2017-06-29] MEDS: Dexamethasone 4 MG Tab PO SCH (17:41)
[2017-06-29] MEDS: hydrALAZINE 20 MG/ML SDV IVPUSH PRN (18:33)
[2017-06-29] MEDS: Simvastatin 10 MG Tab PO SCH (20:15)
[2017-06-29] MEDS: Loratadine 10 MG Tab PO SCH (20:15)
[2017-06-30] MEDS: Oxymetazoline 0.05% Nasal Spray 15 ML Bottle NAS PRN (00:03)
--- NOTE | 2017-06-30 00:54 | PCM.DCSUM1 ---
Discharge Summary - Hospital Course Brief History: This is an 81 yo pleasant elderly white female with past medical hx/o hypercholesterolemia, GERD, hemorrhoids, recurrent UTI, and chronic back pain who presents to the emergency department for evaluation of nausea and vomiting associated with cough, nasal congestion, epigastric pain and now watery diarrhea. She was admitted for acute viral illness 2/2 influenza A. - Discharge Data Discharge Date: 07/01/17 Discharge Disposition: Home, Self-Care 01 Condition: Good - Discharge Diagnosis/Problem(s) (1) Influenza A SNOMED Code(s): 255306483 ICD Code: J10.1 - FLU DUE TO OTH IDENT INFLUENZA VIRUS W OTH RESP MANIFEST Status: Acute (2) URI (upper respiratory infection) SNOMED Code(s): 48688672 ICD Code: J06.9 - ACUTE UPPER RESPIRATORY INFECTION, UNSPECIFIED Status: Acute Qualifiers: Pharyngitis/tonsillitis etiology: other specified organisms (3) Decreased appetite SNOMED Code(s): 43957858 ICD Code: R63.0 - ANOREXIA Status: Resolved (4) Hyponatremia SNOMED Code(s): 20896213 ICD Code: E87.1 - HYPO-OSMOLALITY AND HYPONATREMIA Status: Resolved (5) Hypomagnesemia syndrome SNOMED Code(s): 183341643 ICD Code: E83.42 - HYPOMAGNESEMIA Status: Resolved - Patient Summary/Data Operative Procedure(s) Performed: None Complications: None Consults: Consultations 06/27/17 20:51 Consult to Cask Maker [CONS] Routine OT Evaluation and Treatment [CONS] Routine PT Evaluation and Treatment [CONS] Routine 06/28/17 11:03 RIPRAP PLACER Evaluation and Treatment [CONS] Routine Labs Pending at D/C: None Recommended Follow-up Testing/Procedures: None Planned Operative Procedure(s) after DC: None Hospital Course: Patient was primarily admitted for acute viral illness. She was positive for influenza A but received no antiviral treatment. Patient was outside the recommended treatment window. However she was provided support care and intravenous fluid for hydration. Slowly, she improved on this regimen. Her hospital course was uncomplicated and the rest of her chronic illness remained stable during his admission. The patient was stable upon discharge. She was provided prescription for lidocaine patch for her chronic back pain. She was advised to follow-up with her primary care in 1 week. She was further advised to come back or seek immediate care should her symptoms persist or get worse. The patient expressed understanding and in agreement with the plans as discussed above. All questions were answered. - Patient Instructions Diet: Usual Diet as Tolerated Activity: As Tolerated Driving: Do Not Drive Showering/Bathing: May Shower Notify Provider of: Fever, Increased Pain, Nausea and/or Vomiting Other/Special Instructions: - Please take new medications as directed. - Continue all home medications. - Recommend you rest and light work/home activity for 1 week. - Drink and eat adequately. - Follow up with your docotr in 1 week. - Call your doctor for any questions or concerns after discharge - Discharge Plan Prescriptions/Med Rec: Lidocaine 5% [Lidoderm 5%] 700 mg TOP DAILY PRN #15 patch PRN Reason: Pain Home Medications: Home Meds Omeprazole 20 mg PO QAM 01/24/15 [History] Ondansetron HCl [Zofran] 4 mg PO Q6HR PRN 01/24/15 [History] Carboxymethylcellulos/Glycerin [Lubricant 0.5-0.9% Eye Drops] 2 drop EYEBOTH TID PRN 01/25/15 [History] Pravastatin [Pravachol] 20 mg PO BEDTIME 01/25/15 [History] amLODIPine [Norvasc] 5 mg PO DAILY 06/30/17 [History] Lidocaine 5% [Lidoderm 5%] 700 mg TOP DAILY PRN #15 patch 07/01/17 [Rx] Patient Handouts: Influenza, Adult, [id number], Influenza, Adult Referrals: Ginny Puga MD [Primary Care Provider] - 07/08/17 2:00 pm (Please follow-up with your primary care doctor, Dr. Ginny Puga, on July 08 at 2:00pm. ) - Discharge Summary/Plan Comment DC Time >30 min.: Yes (45 mins) Discharge Summary/Plan Comment: Discharge to Home - General Info Date of Service: 07/01/17 Admission Dx/Problem (Free Text: Admission Diagnosis/Problem Admission Diagnosis/Problem Influenza due to influenza A virus Subjective Update: Follow Up Functional Status: Reports: Pain Controlled, Tolerating Diet, Ambulating, Urinating. Denies: New Symptoms - Review of Systems General: Denies: Fever, Weakness, Fatigue, Malaise, Chills HEENT: Reports: No Symptoms Pulmonary: Denies: Shortness of Breath Cardiovascular: Denies: Chest Pain Gastrointestinal: Denies: Abdominal Pain, Decreased Appetite, Hematochezia, Nausea, Vomiting Genitourinary: Reports: No Symptoms Musculoskeletal: Reports: No Symptoms Skin: Reports: No Symptoms. Denies: Cyanosis, Mottled, Pallor, Diaphoresis Neurological: Denies: Confusion, Difficulty Walking, Weakness, Gait Disturbance Psychiatric: Denies: Depression, Anxiety, Agitation, Hallucinations Systems Review Comment: No overnight or acute issues. She was doing much better. She had no complaints. Her appetite was improved. - Patient Data Vitals - Most Recent: Last Vital Signs Temp 36.8 C 06/30/17 00:02 Pulse 77 06/30/17 00:02 Resp 14 06/30/17 00:02 BP 139/82 06/30/17 00:02 Pulse Ox 94 L 06/30/17 00:02 Weight - Most Recent: 96.026 kg I&O - Last 24 hours: Intake & Output 06/29/17 06/29/17 06/30/17 14:59 22:59 06:59 Intake Total 320 2895 Output Total 1600 Balance 320 1295 Lab Results - Last 24 hrs: Laboratory Results - last 24 hr 06/29/17 06/29/17 Range/Units 05:10 05:10 WBC 2.95 L (3.98-10.04) K/mm3 RBC 4.47 (3.98-5.22) M/mm3 Hgb 13.8 (11.2-15.7) gm/L Hct 40.9 (34.1-44.9) % MCV 91.5 (79.4-94.8) fl MCH 30.9 (25.6-32.2) pg MCHC 33.7 (32.2-35.5) g/dl RDW Std Deviation 42.6 (36.4-46.3) fL Plt Count 174 L (182-369) K/mm3 MPV 10.3 (9.4-12.3) fl Neut % (Auto) 59.0 (34.0-71.1) % Lymph % (Auto) 20.0 (19.3-51.7) % [place] % (Auto) 19.7 H (4.7-12.5) % Eos % (Auto) 0.3 L (0.7-5.8) Baso % (Auto) 0.3 (0.1-1.2) % Neut # (Auto) 1.74 (1.56-6.13) K/mm3 Lymph # (Auto) 0.59 L (1.18-3.74) K/mm3 [place] # (Auto) 0.58 H (0.24-0.36) K/mm3 Eos # (Auto) 0.01 L (0.04-0.36) K/mm3 Baso # (Auto) 0.01 (0.01-0.08) K/mm3 Manual Slide Review Abnormal smear Sodium 133 L (136-145) mEq/L Potassium 3.8 (3.5-5.1) mEq/L Chloride 100 (98-107) mEq/L Carbon Dioxide 26 (21-32) mEq/L Anion Gap 10.8 (5-15) BUN 7 (7-18) mg/dL Creatinine 1.2 H (0.55-1.02) mg/dL Est Cr Clr Drug Dosing 33.65 mL/min Estimated GFR (MDRD) 43 (>60) mL/min BUN/Creatinine Ratio 5.8 L (14-18) Glucose 67 L (83-115) mg/dL Calcium 8.2 L (8.5-10.1) mg/dL Magnesium 1.8 (1.8-2.4) mg/dl C-Reactive Protein 4.9 H* (<1.0) mg/dL NEREYDA Results - Last 24 hrs: Microbiology 06/28/17 07:50 Gram Stain - Final Sputum - Expectorated Sputum Culture - Preliminary Med Orders - Current: Current Medications Albuterol/Ipratropium (Duoneb 3.0-0.5 Mg/3 Ml) 3 ml NEB Q4H PRN PRN Reason: Shortness Of Breath/wheezing Artificial Tears (Isopto Tears 0.5% Ophth Soln) 0 ml EYEBOTH TID PRN PRN Reason: Dry Eyes Benzocaine/Menthol (Cepacol Sore Throat) 1 lozenge MUCMEM Q4HR PRN PRN Reason: Sore Throat Last Admin: 06/27/17 21:53 Dose: 1 lozenge Bisacodyl (Dulcolax) 5 mg PO DAILY PRN PRN Reason: Constipation Dexamethasone (Dexamethasone) 2 mg PO BIDMEALS [facility] Stop: 07/01/17 07:01 Last Admin: 06/29/17 17:41 Dose: 2 mg Docusate Sodium (Colace) 100 mg PO BID PRN PRN Reason: Constipation Dronabinol (Marinol) 2.5 mg PO TIDMEALS [facility] Last Admin: 06/29/17 17:32 Dose: 2.5 mg Guaifenesin/Codeine Phosphate (Robitussin Ac) 5 ml PO Q4H PRN PRN Reason: Cough Last Admin: 06/27/17 22:09 Dose: 5 ml Hydralazine HCl (Apresoline) 10 mg IVPUSH Q4H PRN PRN Reason: Hypertension Last Admin: 06/29/17 18:33 Dose: 10 mg Hydromorphone HCl (Dilaudid) 0.25 mg IVPUSH Q2H PRN PRN Reason: Pain (severe 7-10) Last Admin: 06/29/17 18:22 Dose: 0.25 mg Promethazine HCl 6.25 mg/ (Sodium Chloride) 50.25 mls @ 100 mls/hr IV Q6H PRN PRN Reason: Nausea/Vomiting Dextrose/Sodium Chloride (Dextrose 5%-Normal Saline) 1,000 mls @ 100 mls/hr IV ASDIRECTED [facility] Last Admin: 06/29/17 17:33 Dose: 100 mls/hr Ibuprofen (Motrin) 400 mg PO Q6H PRN PRN Reason: Pain (mild 1-3) Last Admin: 06/27/17 22:08 Dose: 400 mg Loratadine (Claritin) 10 mg PO BEDTIME [facility] Last Admin: 06/29/17 20:15 Dose: 10 mg Lorazepam (Ativan) 0.25 mg IV Q6H PRN PRN Reason: Anxiety Magnesium Sulfate (Pharmacy To Dose - Magnesium Replacement) 1 dose .XX ASDIRECTED [facility] Metoprolol Tartrate (Lopressor) 2.5 mg IVPUSH Q4H PRN PRN Reason: Tachycardia Multivitamins (Thera) 1 each PO DAILY [facility] Last Admin: 06/29/17 09:19 Dose: 1 each Ondansetron HCl (Zofran) 4 mg IV Q4H PRN PRN Reason: Nausea/Vomiting Last Admin: 06/29/17 18:23 Dose: 4 mg Oral Electrolytes (Thermotabs) 1 each PO BIDMEALS [facility] Last Admin: 06/29/17 17:31 Dose: 1 each Oxycodone HCl (Oxycodone) 5 mg PO Q4H PRN PRN Reason: Pain (moderate 4-6) Last Admin: 06/29/17 21:27 Dose: 5 mg Oxymetazoline HCl (Afrin Original 0.05% Nasal [place]) 1 - 2 ml RAMY Q12HR PRN PRN Reason: Congestion Last Admin: 06/30/17 00:03 Dose: 1 spray Pantoprazole Sodium (Protonix) 40 mg PO DAILY@0700 [facility] Last Admin: 06/29/17 06:14 Dose: 40 mg Polyethylene Glycol (Miralax) 17 gm PO DAILY PRN PRN Reason: Constipation Potassium Chloride (Pharmacy To Dose - Potassium Replacement) 1 dose .XX ASDIRECTED [facility] Scopolamine (Transderm-Scop) 1.5 mg TRDERM Q72H PRN PRN Reason: Nausea/Vomiting Senna/Docusate Sodium (Senna Plus) 1 tab PO BID PRN PRN Reason: Constipation Simvastatin (Zocor) 10 mg PO BEDTIME [facility] Last Admin: 06/29/17 20:15 Dose: 10 mg Temazepam (Restoril) 7.5 mg PO BEDTIME PRN PRN Reason: Sleep Last Admin: 06/28/17 00:52 Dose: 7.5 mg Discontinued Medications Dexamethasone (Dexamethasone) 2 mg PO BIDMEALS [facility] Stop: 07/01/17 07:01 Diatrizoate Meglum/Diatrizoate Sod (Gastrografin 37%) 90 ml PO ONETIME ONE Stop: 06/27/17 16:37 Last Admin: 06/27/17 16:53 Dose: 90 ml Sodium Chloride (Normal Saline) 1,000 mls @ 999 mls/hr IV ONETIME ONE Stop: 06/27/17 16:45 Last Infusion: 06/27/17 16:21 Dose: 999 mls/hr Sodium Chloride (Normal Saline) 100 mls @ 60 mls/hr IV ASDIRECTED [facility] Last Admin: 06/27/17 16:55 Dose: 60 mls/hr Magnesium Sulfate 2 gm/ Premix 50 mls @ 25 mls/hr IV ONETIME ONE Stop: 06/27/17 23:31 Last Admin: 06/27/17 21:49 Dose: 25 mls/hr Iopamidol (Isovue-370 (76%)) 90 ml IVPUSH ONETIME ONE Stop: 06/27/17 16:37 Last Admin: 06/27/17 16:53 Dose: 90 ml Megestrol Acetate (Megace 40 Mg/Ml Susp) 400 mg PO DAILY [facility] Last Admin: 06/28/17 09:24 Dose: 400 mg Metoclopramide HCl (Reglan) 5 mg IVPUSH ONETIME ONE Stop: 06/27/17 17:34 Last Admin: 06/27/17 17:42 Dose: 5 mg Ondansetron HCl (Zofran) 4 mg IVPUSH ONETIME ONE Stop: 06/27/17 15:46 Last Admin: 06/27/17 15:54 Dose: 4 mg Pneumococcal Polyvalent Vaccine (Pneumovax 23) 0.5 ml IM .ONCE ONE Stop: 06/27/17 21:01 Potassium Chloride (Klor-Con M20) 40 meq PO ONETIME ONE Stop: 06/28/17 16:34 Last Admin: 06/28/17 17:57 Dose: 40 meq Sodium Chloride (Saline Flush) 10 ml FLUSH ONETIME ONE Stop: 06/27/17 16:37 Last Admin: 06/27/17 16:55 Dose: 10 ml - Exam General: Reports: Alert, Oriented, Cooperative, No Acute Distress HEENT: Reports: Pupils Equal, Pupils Reactive, EOMI, Mucous Membr. Moist/[place] Neck: Reports: Supple, Trachea Midline, No JVD Lungs: Reports: Clear to Auscultation, Normal Respiratory Effort Cardiovascular: Reports: Regular Rate, Regular Rhythm GI/Abdominal Exam: Normal Bowel Sounds, Soft, Non-Tender, No Organomegaly, No Distention, No Abnormal Bruit, No Mass (Female) Exam: Deferred Rectal (Female) Exam: Deferred Back Exam: Reports: Normal Inspection, Decreased Range of Motion Extremities: Normal Inspection, Normal Range of Motion, Non-Tender, No Pedal Edema, Normal Capillary Refill Skin: Reports: Warm, Dry, Intact Neurological: Reports: No New Focal Deficit Psy/Mental Status: Reports: Alert, Normal Affect, Normal Mood *Q Meaningful Use (DIS) - VTE *Q VTE Criteria *Q: - Stroke *Q Stroke Criteria *Q: - AMI *Q AMI Criteria *Q:
[2017-06-30] MEDS: Dextrose 5%-0.9% NaCl 1,000 ML IV SCH (03:27)
[2017-06-30] MEDS: Dexamethasone 4 MG Tab PO SCH ×2 (06:20→17:22)
[2017-06-30] MEDS: Dronabinol 2.5 MG Cap PO SCH ×3 (06:21→17:22)
[2017-06-30] MEDS: Pantoprazole 40 MG Tab.CR PO SCH (06:21)
[2017-06-30] MEDS: Potassium Chloride/Sodium Chloride Tab PO SCH ×2 (06:22→17:22)
[2017-06-30] MEDS: Multivitamins,Therapeutic Tab PO SCH (08:19)
--- NOTE | 2017-06-30 08:21 | PCM.PN ---
- General Info Date of Service: 06/30/17 Admission Dx/Problem (Free Text): Admission Diagnosis/Problem Admission Diagnosis/Problem Influenza due to influenza A virus Subjective Update: Follow Up Functional Status: Reports: Pain Controlled, Tolerating Diet, Ambulating, Urinating. Denies: New Symptoms - Review of Systems General: Denies: Fever, Weakness, Fatigue, Malaise, Chills HEENT: Reports: No Symptoms Pulmonary: Denies: Shortness of Breath Cardiovascular: Denies: Chest Pain Gastrointestinal: Denies: Abdominal Pain, Nausea, Vomiting Genitourinary: Reports: No Symptoms Musculoskeletal: Reports: Back Pain Skin: Denies: Cyanosis, Pallor, Diaphoresis, Rash Neurological: Denies: Confusion, Difficulty Walking, Weakness, Gait Disturbance Psychiatric: Denies: Depression, Anxiety, Agitation, Hallucinations Systems Review Comment:: No overnight or acute issues. She feels better this am. Her pain is controlled. Her appetite seems have gotten better as well. She is worried going home with narcotic pain pill to control her back pain. She reports no new complaints. - Patient Data Vitals - Most Recent: Last Vital Signs Temp 36.7 C 06/30/17 07:30 Pulse 60 06/30/17 07:30 Resp 18 06/30/17 07:30 BP 133/79 06/30/17 07:30 Pulse Ox 98 06/30/17 07:30 Weight - Most Recent: 97.159 kg I&O - Last 24 Hours: Intake & Output 06/29/17 06/30/17 06/30/17 22:59 06:59 14:59 Intake Total 2895 1769 Output Total 1600 1280 Balance 1295 489 Lab Results Last 24 Hours: Laboratory Results - last 24 hr 06/30/17 06/30/17 Range/Units 05:45 05:45 WBC 2.61 L (3.98-10.04) K/mm3 RBC 4.30 (3.98-5.22) M/mm3 Hgb 13.2 (11.2-15.7) gm/L Hct 38.9 (34.1-44.9) % MCV 90.5 (79.4-94.8) fl MCH 30.7 (25.6-32.2) pg MCHC 33.9 (32.2-35.5) g/dl RDW Std Deviation 42.1 (36.4-46.3) fL Plt Count 146 L (182-369) K/mm3 MPV 10.2 (9.4-12.3) fl Neut % (Auto) 71.6 H (34.0-71.1) % Lymph % (Auto) 13.4 L (19.3-51.7) % White % (Auto) 13.8 H (4.7-12.5) % Eos % (Auto) 0 L (0.7-5.8) Baso % (Auto) 0.4 (0.1-1.2) % Neut # (Auto) 1.87 (1.56-6.13) K/mm3 Lymph # (Auto) 0.35 L (1.18-3.74) K/mm3 White # (Auto) 0.36 (0.24-0.36) K/mm3 Eos # (Auto) 0.00 L (0.04-0.36) K/mm3 Baso # (Auto) 0.01 (0.01-0.08) K/mm3 Manual Slide Review Abnormal smear Sodium 137 (136-145) mEq/L Potassium 3.9 (3.5-5.1) mEq/L Chloride 104 (98-107) mEq/L Carbon Dioxide 23 (21-32) mEq/L Anion Gap 13.9 (5-15) BUN 7 (7-18) mg/dL Creatinine 1.0 (0.55-1.02) mg/dL Est Cr Clr Drug Dosing 40.38 mL/min Estimated GFR (MDRD) 53 (>60) mL/min BUN/Creatinine Ratio 7.0 L (14-18) Glucose 117 H (83-115) mg/dL Calcium 8.1 L (8.5-10.1) mg/dL Magnesium 1.8 (1.8-2.4) mg/dl C-Reactive Protein 4.4 H* (<1.0) mg/dL Rishabh Results Last 24 Hours: Microbiology 06/28/17 07:50 Gram Stain - Final Sputum - Expectorated Sputum Culture - Preliminary Med Orders - Current: Current Medications Albuterol/Ipratropium (Duoneb 3.0-0.5 Mg/3 Ml) 3 ml NEB Q4H PRN PRN Reason: Shortness Of Breath/wheezing Artificial Tears (Isopto Tears 0.5% Ophth Soln) 0 ml EYEBOTH TID PRN PRN Reason: Dry Eyes Benzocaine/Menthol (Cepacol Sore Throat) 1 lozenge MUCMEM Q4HR PRN PRN Reason: Sore Throat Last Admin: 06/27/17 21:53 Dose: 1 lozenge Bisacodyl (Dulcolax) 5 mg PO DAILY PRN PRN Reason: Constipation Dexamethasone (Dexamethasone) 2 mg PO BIDMEALS [facility] Stop: 07/01/17 07:01 Last Admin: 06/30/17 06:20 Dose: 2 mg Docusate Sodium (Colace) 100 mg PO BID PRN PRN Reason: Constipation Dronabinol (Marinol) 2.5 mg PO TIDMEALS [facility] Last Admin: 06/30/17 06:21 Dose: 2.5 mg Guaifenesin/Codeine Phosphate (Robitussin Ac) 5 ml PO Q4H PRN PRN Reason: Cough Last Admin: 06/27/17 22:09 Dose: 5 ml Hydralazine HCl (Apresoline) 10 mg IVPUSH Q4H PRN PRN Reason: Hypertension Last Admin: 06/29/17 18:33 Dose: 10 mg Hydromorphone HCl (Dilaudid) 0.25 mg IVPUSH Q2H PRN PRN Reason: Pain (severe 7-10) Last Admin: 06/29/17 18:22 Dose: 0.25 mg Promethazine HCl 6.25 mg/ (Sodium Chloride) 50.25 mls @ 100 mls/hr IV Q6H PRN PRN Reason: Nausea/Vomiting Dextrose/Sodium Chloride (Dextrose 5%-Normal Saline) 1,000 mls @ 100 mls/hr IV ASDIRECTED [facility] Last Admin: 06/30/17 03:27 Dose: 100 mls/hr Ibuprofen (Motrin) 400 mg PO Q6H PRN PRN Reason: Pain (mild 1-3) Last Admin: 06/27/17 22:08 Dose: 400 mg Loratadine (Claritin) 10 mg PO BEDTIME [facility] Last Admin: 06/29/17 20:15 Dose: 10 mg Lorazepam (Ativan) 0.25 mg IV Q6H PRN PRN Reason: Anxiety Magnesium Sulfate (Pharmacy To Dose - Magnesium Replacement) 0 dose .XX ASDIRECTED PRN PRN Reason: RX TO WATCH MAG LEVELS Metoprolol Tartrate (Lopressor) 2.5 mg IVPUSH Q4H PRN PRN Reason: Tachycardia Multivitamins (Thera) 1 each PO DAILY [facility] Last Admin: 06/29/17 09:19 Dose: 1 each Ondansetron HCl (Zofran) 4 mg IV Q4H PRN PRN Reason: Nausea/Vomiting Last Admin: 06/29/17 18:23 Dose: 4 mg Oral Electrolytes (Thermotabs) 1 each PO BIDMEALS [facility] Last Admin: 06/30/17 06:22 Dose: 1 each Oxycodone HCl (Oxycodone) 5 mg PO Q4H PRN PRN Reason: Pain (moderate 4-6) Last Admin: 06/29/17 21:27 Dose: 5 mg Oxymetazoline HCl (Afrin Original 0.05% Nasal [place]) 1 - 2 ml RAMY Q12HR PRN PRN Reason: Congestion Last Admin: 06/30/17 00:03 Dose: 1 spray Pantoprazole Sodium (Protonix) 40 mg PO DAILY@0700 [facility] Last Admin: 06/30/17 06:21 Dose: 40 mg Polyethylene Glycol (Miralax) 17 gm PO DAILY PRN PRN Reason: Constipation Potassium Chloride (Pharmacy To Dose - Potassium Replacement) 0 dose .XX ASDIRECTED PRN PRN Reason: RX TO WATCH K LEVELS Scopolamine (Transderm-Scop) 1.5 mg TRDERM Q72H PRN PRN Reason: Nausea/Vomiting Senna/Docusate Sodium (Senna Plus) 1 tab PO BID PRN PRN Reason: Constipation Simvastatin (Zocor) 10 mg PO BEDTIME [facility] Last Admin: 06/29/17 20:15 Dose: 10 mg Temazepam (Restoril) 7.5 mg PO BEDTIME PRN PRN Reason: Sleep Last Admin: 06/28/17 00:52 Dose: 7.5 mg Discontinued Medications Dexamethasone (Dexamethasone) 2 mg PO BIDMEALS [facility] Stop: 07/01/17 07:01 Diatrizoate Meglum/Diatrizoate Sod (Gastrografin 37%) 90 ml PO ONETIME ONE Stop: 06/27/17 16:37 Last Admin: 06/27/17 16:53 Dose: 90 ml Sodium Chloride (Normal Saline) 1,000 mls @ 999 mls/hr IV ONETIME ONE Stop: 06/27/17 16:45 Last Infusion: 06/27/17 16:21 Dose: 999 mls/hr Sodium Chloride (Normal Saline) 100 mls @ 60 mls/hr IV ASDIRECTED [facility] Last Admin: 06/27/17 16:55 Dose: 60 mls/hr Magnesium Sulfate 2 gm/ Premix 50 mls @ 25 mls/hr IV ONETIME ONE Stop: 06/27/17 23:31 Last Admin: 06/27/17 21:49 Dose: 25 mls/hr Iopamidol (Isovue-370 (76%)) 90 ml IVPUSH ONETIME ONE Stop: 06/27/17 16:37 Last Admin: 06/27/17 16:53 Dose: 90 ml Megestrol Acetate (Megace 40 Mg/Ml Susp) 400 mg PO DAILY [facility] Last Admin: 06/28/17 09:24 Dose: 400 mg Metoclopramide HCl (Reglan) 5 mg IVPUSH ONETIME ONE Stop: 06/27/17 17:34 Last Admin: 06/27/17 17:42 Dose: 5 mg Ondansetron HCl (Zofran) 4 mg IVPUSH ONETIME ONE Stop: 06/27/17 15:46 Last Admin: 06/27/17 15:54 Dose: 4 mg Pneumococcal Polyvalent Vaccine (Pneumovax 23) 0.5 ml IM .ONCE ONE Stop: 06/27/17 21:01 Potassium Chloride (Klor-Con M20) 40 meq PO ONETIME ONE Stop: 06/28/17 16:34 Last Admin: 06/28/17 17:57 Dose: 40 meq Sodium Chloride (Saline Flush) 10 ml FLUSH ONETIME ONE Stop: 06/27/17 16:37 Last Admin: 06/27/17 16:55 Dose: 10 ml - Exam General: Alert, Oriented, Cooperative, No Acute Distress HEENT: Pupils Equal, Pupils Reactive, EOMI, Mucous Membr. Moist/[place] Neck: Supple, Trachea Midline, No JVD Lungs: Clear to Auscultation, Normal Respiratory Effort Cardiovascular: Regular Rate, Regular Rhythm GI/Abdominal Exam: Normal Bowel Sounds, Soft, Non-Tender, No Organomegaly, No Distention, No Abnormal Bruit, No Mass (Female) Exam: Deferred Back Exam: Normal Inspection, Decreased Range of Motion, Vertebral Tenderness Extremities: Normal Inspection, Normal Range of Motion, Non-Tender, No Pedal Edema, Normal Capillary Refill Peripheral Pulses: 2+: Dorsalis Pedis (L), Dorsalis Pedis (R) Skin: Warm, Dry, Intact Neurological: No New Focal Deficit Psy/Mental Status: Alert, Normal Affect, Normal Mood - Problem List & Annotations (1) Influenza A SNOMED Code(s): 281025800 Code(s): J10.1 - FLU DUE TO OTH IDENT INFLUENZA VIRUS W OTH RESP MANIFEST Status: Acute Current Visit: Yes (2) URI (upper respiratory infection) SNOMED Code(s): 72772369 Code(s): J06.9 - ACUTE UPPER RESPIRATORY INFECTION, UNSPECIFIED Status: Acute Current Visit: Yes Qualifiers: Pharyngitis/tonsillitis etiology: other specified organisms (3) Decreased appetite SNOMED Code(s): 16529120 Code(s): R63.0 - ANOREXIA Status: Acute Current Visit: Yes (4) Hyponatremia SNOMED Code(s): 62543425 Code(s): E87.1 - HYPO-OSMOLALITY AND HYPONATREMIA Status: Resolved Current Visit: Yes (5) Hypomagnesemia syndrome SNOMED Code(s): 333644316 Code(s): E83.42 - HYPOMAGNESEMIA Status: Resolved Current Visit: Yes - Problem List Review Problem List Initiated/Reviewed/Updated: Yes - My Orders Last 24 Hours: My Active Orders 06/29/17 12:15 Magnesium Rep Pharmacy to Dose [Pharmacy to Dose - Magnesium Replacement] 0 dose .XX ASDIRECTED PRN Metoprolol Tartrate [Lopressor] 2.5 mg IVPUSH Q4H PRN Potassium Rep Pharmacy to Dose [Pharmacy to Dose - Potassium Replacement] 0 dose .XX ASDIRECTED PRN hydrALAZINE [Apresoline] 10 mg IVPUSH Q4H PRN 06/29/17 17:00 Dexamethasone 2 mg PO BIDMEALS - Plan Plan:: Assessment/Plan: Acute: Influenza A Infection - Onset of illness was Friday - No Antiviral recommended; she is now outside the 48 hrs window - Continue supportive care URI, Improved - Likely 2/2 Viral Illness - Nasal congestion, cough, feels "gaggy" (hyperactive gag reflex) - Clear oropharyngeal exam - Continue Afrin nasal spray PRN BID, Guaifenasin/Codeine 5 mf po Q4 PRN, Cepacol 1 tab po Q4H for sore throat - Supportive care Back Pain - Acute on chronic - No recent injury/trauma or fall - Has been controlled with narcotic pill but would like something less potent than that - Lidocaine patch daily PRN and NSAIDs/Tylenol q6H PRN for pain Abn/Pelvis CT Scan Findings - Moderately large hiatal hernia - Small low-density measuring a centimeter in the spleen - Low density area within the right kidney measuring 1 cm felt to be a cyst - Low-density abnormality inferior routine the right kidney measuring 1 cm felt to be an additional cyst - Scarring seen within the right upper kidney - Left kidney shows a small exophytic cyst measuring 1 cm - Aorta shows atherosclerotic changes without aneurysmal dilatation - Small fat-containing umbilical hernia - Mild diverticulosis within the sigmoid colon without inflammatory change of the diverticulitis Resolved: Mild Hyponatremia - Na 128 -->136 - Currently hydrating with D5NS at 100 cc/hr - Salt tab 1 tab po BID - Monitor Hypomagnesemia - Mg 1.5 -->2.2 - Pharmacy to replete and monitor Mild Hypokalemia - K 3.4 -->3.8 - Pharmacy to replete and monitor Nausea w/o Emesis - Medications induced - Continue oral Marinol TID; added low dose steroid x4 doses only - PRN anti-emesis meds Chronic: HLD GERD Recurrent UTI Back Pain Plan; She looks clinically much better today. Her appetite seems to have picked up as well. Continue current treatment Routine AM Labs Continue PT/OT Encourage to ambulated TID-QID as tolerated Additional orders as above Code status: CPR only She is requesting d/c in AM (patient lives alone and has no support system at home)
[2017-06-30] MEDS ORDERED: Acetaminophen Soln 650 MG/20.3 ML UD Cup PO PRN (08:27)
[2017-06-30] MEDS: Magnesium Oxide 400 MG Tab PO SCH ×2 (10:37→20:30)
[2017-06-30] MEDS: Lidocaine 5% 700 MG Patch TOP PRN (10:37)
[2017-06-30] MEDS: Simvastatin 10 MG Tab PO SCH (20:30)
[2017-06-30] MEDS: Loratadine 10 MG Tab PO SCH (20:30)
[2017-06-30] MEDS: hydrALAZINE 20 MG/ML SDV IVPUSH PRN (20:32)
[2017-06-30] MEDS ORDERED: Simethicone 80 MG Tab.Chew PO PRN (22:17)
[2017-06-30] MEDS: amLODIPine 5 MG Tab PO SCH (22:31)
[2017-06-30] MEDS: Temazepam 7.5 MG Cap PO PRN (22:31)
[2017-07-01] MEDS: Dronabinol 2.5 MG Cap PO SCH (07:47)
[2017-07-01] MEDS: Potassium Chloride/Sodium Chloride Tab PO SCH (07:47)
[2017-07-01] MEDS: Pantoprazole 40 MG Tab.CR PO SCH (07:47)
[2017-07-01] MEDS: Dexamethasone 4 MG Tab PO SCH (07:47)
[2017-07-01 08:17] VITALS: BP 147/53
[2017-07-01] MEDS: amLODIPine 5 MG Tab PO SCH (08:17)
[2017-07-01] MEDS: Multivitamins,Therapeutic Tab PO SCH (08:17)
[2017-07-01] MEDS: Lidocaine 5% 700 MG Patch TOP PRN (08:25)
== END 2017-07-01 10:24 | disposition home or self-care (01) | DRG 194 ==
LOC: JD.ED 14:50 → JD.MS 18:33 → UNDOADMIN 18:33 → JD.MS 19:54 → UNDODISIN 07-01 10:24
PROVIDERS: ADMIT Internal Medicine; ATTEND Internal Medicine
DX: J09.X2 Influenza due to identified novel influenza A virus with other respiratory manifestations (principal); E86.0 Dehydration; E87.1 Hypo-osmolality and hyponatremia; J06.9 Acute upper respiratory infection, unspecified; R63.0 Anorexia; E83.42 Hypomagnesemia; E78.00 Pure hypercholesterolemia, unspecified; Z88.8 Allergy status to other drugs, medicaments and biological substances; Z79.899 Other long term (current) drug therapy
CPT/HCPCS: 36415; 71010; 74177; 80053; 81001; 83690; 83735; 84484; 85025; 86140; 87804 ×2; 93005; 96361; 96374; 96375; 99285; J2405; J2765; J7030; J7040; J7050; Q9963; Q9967; 80048; 87070; 87205; 93010; 96125-GN; 97161-GP; 97165-GO; 99284-25; A9270-GY; J0360; J1170; J3475; J7042; J8540; Q0167

== ENCOUNTER 2017-07-30 09:23 | Emergency (ER) | payer MEDICARE, BC ==
[2017-07-30] MEDS ORDERED: Sodium Chloride 0.9% 1,000 ML IV SCH (09:45)
--- NOTE | 2017-07-30 09:47 | EDM.PDOC ---
ED HPI GENERAL MEDICAL PROBLEM - General Chief Complaint: Chest Pain Stated Complaint: CHEST PRESSURE Time Seen by Provider: 07/30/17 09:30 Source of Information: Reports: Patient, Family (daughter) History Limitations: Reports: No Limitations - History of Present Illness INITIAL COMMENTS - FREE TEXT/NARRATIVE: 81-year-old female presents to the ED with history of central chest discomfort. She is a poor historian and she reports that last evening she started to feel unwell and developed transient central chest pressure heaviness that lasted perhaps 2-5 minutes. She slept well overnight. This morning however she felt pooped out and a little short of breath on exertion such as getting dressed. Her daughter actually had to help her get dressed morning which would be unusual. She also had a another bout of central chest pressure and she therefore stuck her finger and a pulse oximeter that she has at home and heart rate was registering 1 55/m. She was not aware of any fluttering in her chest but she did has chest pressure once again with this. Upon arrival in the ED she is in sinus rhythm at 68/m. Occasional PVCs. Early R-wave transition on ECG and near Q waves in leads 3 and aVF suggestive of an old inferior wall myocardial infarction. There may be some mild ST segment depression in lead aVF. Patient has no history of heart disease. No recent changes to medications. She reports a relative allergy to aspirin. She never did develop hives with this medication. Onset: Sudden Onset Date: 07/29/17 Onset Time: 20:00 (Sudden onset of central chest heaviness last night that lasted only 2-5 minutes per patient's history.) Duration: Minutes: Location: Reports: Chest (Central chest heaviness/ pressure.) Quality: Reports: Ache, Pressure Severity: Moderate Improves with: Reports: Other (No pain at the time of examination in the ED.) Worsens with: Reports: None Context: Denies: Activity, Exercise, Lifting, Sick Contact, Trauma, Other Associated Symptoms: Reports: Chest Pain (Transient last night and again this morning.), Malaise. Denies: Cough, cough w sputum, Diaphoresis, Fever/Chills, Headaches, Loss of Appetite, Nausea/Vomiting, Rash, Seizure Treatments GENERAL MAINTENANCE TECHNICIAN: Reports: Other (see below) (none.) epigastric Pain Score (Numeric/FACES): 5 - Related Data Allergies Allergy/AdvReac Type Severity Reaction Status Date / Time codeine Allergy Difficulty Verified 07/30/17 09:32 Breathing esomeprazole magnesium Allergy Edema Verified 07/30/17 09:32 [From Nexium] losartan potassium Allergy Hives Verified 07/30/17 09:32 [From Cozaar] COLLINS Inhibitors AdvReac Diarrhea Verified 07/30/17 09:32 aspirin AdvReac Fatigue Verified 07/30/17 09:32 erythromycin base AdvReac Nausea and Verified 07/30/17 09:32 Vomiting meperidine HCl [From Demerol] AdvReac Irritabilit Verified 07/30/17 09:32 y Home Meds: Home Meds Omeprazole 20 mg PO QAM 01/24/15 [History] Ondansetron HCl [Zofran] 4 mg PO Q6HR PRN 01/24/15 [History] Carboxymethylcellulos/Glycerin [Lubricant 0.5-0.9% Eye Drops] 2 drop EYEBOTH TID PRN 01/25/15 [History] amLODIPine [Norvasc] 5 mg PO DAILY 06/30/17 [History] Cholestyramine/Sucrose [Cholestyramine Powder] 4 gm PO DAILY 07/30/17 [History] Hydrocortisone Acetate [Anucort-HC] 25 mg RC ASDIRECTED PRN 07/30/17 [History] Past Medical History Cardiovascular History: Reports: High Cholesterol Other Cardiovascular History: not on meds anymore and is controlling it by diet. Gastrointestinal History: Reports: GERD, Hemorrhoids Genitourinary History: Reports: UTI, Recurrent RANCH HAND LIVESTOCK History: Reports: , Other (See Below) Other OB/BYN History: states vaginal bleeding, intermittent 07/2017 Musculoskeletal History: Reports: Back Pain, Chronic Endocrine/Metabolic History: Reports: Obesity/BMI 30+ - Infectious Disease History Infectious Disease History: Reports: Chicken Pox, Influenza, Measles, Mumps - Past Surgical History HEENT Surgical History: Reports: Cataract Surgery Other HEENT Surgeries/Procedures: bi-lat eyes Cardiovascular Surgical History: Reports: None GI Surgical History: Reports: Cholecystectomy (chronic diarrhea since cholecystectomy.), Colonoscopy, Other (See Below) Other GI Surgeries/Procedures: small hernias to abdomen Female Surgical History: Reports: None Endocrine Surgical History: Reports: None Musculoskeletal Surgical History: Reports: None Social & Family History - Family History Family Medical History: Noncontributory - Tobacco Use Smoking Status *Q: Never Smoker Second Hand Smoke Exposure: No - Caffeine Use Caffeine Use: Reports: Coffee Other Caffeine Use: states usually drinks decaff coffee aND A RARE OCCASSIONAL POP - Recreational Drug Use Recreational Drug Use: No - Living Situation & Occupation Living situation: Reports: Occupation: Retired ED ROS GENERAL - Review of Systems Review Of Systems: See Below Constitutional: Reports: Malaise, Fatigue. Denies: Fever, Chills, Decreased Appetite, Weight Loss HEENT: Reports: No Symptoms Respiratory: Reports: Shortness of Breath, Cough (Occasional nonproductive cough ). Denies: Wheezing, Pleuritic Chest Pain (Mild.), Sputum, Hemoptysis, Other Cardiovascular: Reports: Chest Pain, Blood Pressure Problem (Intermittent central chest heaviness lasting for short periods of time.), Dyspnea on Exertion (Special he needed help getting dressed this morning which is unusual.) , Other (When she put her finger on her pulse oximeter at home heart rate was registering at 1 55/m. This is associated with the chest heaviness. She's never had palpitations before.). Denies: Claudication, Edema, Lightheadedness, Orthopnea ( Chronic hypertension) Endocrine: Reports: Fatigue GI/Abdominal: Reports: Other (Currently having problems with some external hemorrhoids. Getting over the stomach flu which he had diarrhea. Stools are now formed up and normal.). Denies: Abdominal Pain : Reports: Frequency Musculoskeletal: Reports: Back Pain, Joint Pain Skin: Reports: No Symptoms (Knees and hips and neck at times.) Neurological: Reports: No Symptoms Psychiatric: Reports: No Symptoms Hematologic/Lymphatic: Reports: No Symptoms Immunologic: Reports: No Symptoms ED EXAM, GENERAL - Physical Exam Exam: See Below Exam Limited By: No Limitations General Appearance: Alert, WD/WN, Anxious, Mild Distress Eye Exam: Bilateral Eye: Normal Inspection Head: Atraumatic, Normocephalic Neck: Normal Inspection, Supple, Non-Tender. No: Full Range of Motion, Lymphadenopathy (R) Respiratory/Chest: No Respiratory Distress, Lungs Clear, Normal Breath Sounds, Chest Non-Tender, Other (No chest wall pain elicited.). No: Decreased Breath Sounds Cardiovascular: Normal Peripheral Pulses, Regular Rate, Rhythm, No Edema, No Gallop, No Murmur Peripheral Pulses: 1+: Posterior Tibial (L), Posterior Tibial (R), Dorsalis Pedis (L), Dorsalis Pedis (R) GI/Abdominal: Normal Bowel Sounds, Soft, Tender (Across both lower quadrants and suprapubically. No guarding or rebound). No: Guarding, Rigid, Rebound Back Exam: Normal Inspection, Full Range of Motion. No: CVA Tenderness (L), CVA Tenderness (R) Extremities: Normal Inspection, Normal Range of Motion, No Pedal Edema Neurological: Alert, Oriented, CN II-XII Intact, Normal Cognition Psychiatric: Normal Affect, Normal Mood Skin Exam: Warm, Dry, Intact, Normal Color, No Rash EKG INTERPRETATION EKG Date: 07/30/17 Time: 09:30 Rhythm: NSR Rate (Beats/Min): 68 [place]: LAD-Left [place] Deviation (Mild that -5) P-Wave: Present QRS: Other (Early R-wave transition suggests suspect septal hypertrophy. Occasional unifocal PVCs. Near Q-wave in lead 3 and aVF consider old inferior wall myocardial infarction. Decreased voltage in the limb leads.) ST-T: Other (T-wave inversion in aVL) EKG Interpretation Comments: Borderline ECG. Course - Vital Signs Last Recorded V/S: Last Vital Signs Temp 35.5 C 07/30/17 09:24 Pulse 50 L 07/30/17 11:44 Resp 18 07/30/17 11:00 BP 113/63 07/30/17 11:44 Pulse Ox 99 07/30/17 11:00 - Orders/Labs/Meds Orders: Active Orders 24 hr Category Date Time Status Communication Order [RC] STAT Care 07/30/17 10:39 Inactive Communication Order [RC] STAT Care 07/30/17 10:40 Active EKG Documentation Completion [RC] ASDIRECTED Care 07/30/17 10:02 Active EKG Documentation Completion [RC] ASDIRECTED Care 07/30/17 10:59 Active EKG Documentation Completion [RC] STAT Care 07/30/17 09:43 Active Magnesium Sulfate/Water [Magnesium Sulfate 2 GM in Med 07/30/17 10:47 Active Water 50 ML] 2 gm Premix Bag 1 bag IV ONETIME Sodium Chloride 0.9% [Normal Saline] 1,000 ml Med 07/30/17 09:45 Active IV ASDIRECTED EKG 12 Lead [EK] Stat Ther 07/30/17 09:55 Ordered EKG 12 Lead [EK] Stat Ther 07/30/17 10:59 Ordered Medication Orders Sodium Chloride (Normal Saline) 1,000 mls @ 75 mls/hr IV ASDIRECTED VALERIE Last Infusion: 07/30/17 10:39 Dose: 75 mls/hr Admin: 07/30/17 09:56 Dose: 125 mls/hr Magnesium Sulfate 2 gm/ Premix 50 mls @ 25 mls/hr IV ONETIME ONE Stop: 07/30/17 12:46 Last Admin: 07/30/17 10:55 Dose: 25 mls/hr Labs: Laboratory Tests 07/30/17 07/30/17 07/30/17 Range/Units 09:35 09:35 09:35 WBC 7.48 (3.98-10.04) K/mm3 RBC 5.20 (3.98-5.22) M/mm3 Hgb 15.7 (11.2-15.7) gm/L Hct 46.4 H (34.1-44.9) % MCV 89.2 (79.4-94.8) fl MCH 30.2 (25.6-32.2) pg MCHC 33.8 (32.2-35.5) g/dl RDW Std Deviation 43.9 (36.4-46.3) fL Plt Count 231 (182-369) K/mm3 MPV 10.7 (9.4-12.3) fl Neutrophils % (Manual) 76 H (40-60) % Band Neutrophils % 0 (0-10) % Lymphocytes % (Manual) 16 L (20-40) % Atypical Lymphs % 0 % Monocytes % (Manual) 7 (2-10) % Eosinophils % (Manual) 1 (0.7-5.8) % Basophils % (Manual) 0 L (0.1-1.2) Platelet Estimate Adequate RBC Morph Comment Normal PT 10.3 (8.0-13.0) SECONDS INR 0.95 Sodium 137 (136-145) mEq/L Potassium 3.9 (3.5-5.1) mEq/L Chloride 105 (98-107) mEq/L Carbon Dioxide 19 L (21-32) mEq/L Anion Gap 16.9 H (5-15) BUN 10 (7-18) mg/dL Creatinine 1.3 H (0.55-1.02) mg/dL Est Cr Clr Drug Dosing 31.06 mL/min Estimated GFR (MDRD) 39 (>60) mL/min BUN/Creatinine Ratio 7.7 L (14-18) Glucose 137 H (83-115) mg/dL Calcium 8.9 (8.5-10.1) mg/dL Magnesium 1.6 L (1.8-2.4) mg/dl Total Bilirubin 0.7 (0.2-1.0) mg/dL AST 28 (15-37) U/L ALT 34 (14-59) U/L Alkaline Phosphatase 62 (46-116) U/L CK-MB (CK-2) 8.8 H (0-3.6) ng/ml Troponin I 2.282 H* (0.00-0.056) ng/mL C-Reactive Protein < 0.2 (<1.0) mg/dL NT-Pro-B Natriuret Pep 2681 H (0-450) pg/mL Total Protein 6.8 (6.4-8.2) g/dl Albumin 3.4 (3.4-5.0) g/dl Globulin 3.4 gm/dL Albumin/Globulin Ratio 1.0 (1-2) Meds: Medications Generic Name Dose Route Start Last Admin Trade Name Jose A PRN Reason Stop Dose Admin Sodium Chloride 1,000 mls @ 75 mls/hr 07/30/17 09:45 07/30/17 10:39 Normal Saline IV 75 mls/hr ASDIRECTED VALERIE Infusion Magnesium Sulfate 2 gm/ Premix 50 mls @ 25 mls/hr 07/30/17 10:47 07/30/17 10: 55 IV 07/30/17 12:46 25 mls/hr ONETIME ONE Administration Discontinued Medications Generic Name Dose Route Start Last Admin Trade Name Freq PRN Reason Stop Dose Admin Adenosine 6 mg 07/30/17 09:50 07/30/17 09:56 Adenocard IVPUSH 07/30/17 09:51 6 mg NOW ONE Administration Adenosine Confirm 07/30/17 09:57 07/30/17 09:56 Adenocard Administered 07/30/17 09:58 Not Given Dose 6 mg .ROUTE .STK-MED ONE Aspirin 324 mg 01/24/18 10:23 07/30/17 10:26 Aspirin PO 07/30/17 10:24 324 mg ONETIME ONE Administration Aspirin Confirm 07/30/17 10:30 07/30/17 10:33 Aspirin Administered 07/30/17 10:31 Not Given Dose 324 mg .ROUTE .STK-MED ONE Enoxaparin Sodium 90 mg 07/30/17 10:33 07/30/17 10:50 Lovenox SUBCUT 07/30/17 10:34 90 mg ONETIME ONE Administration Furosemide 40 mg 07/30/17 10:46 07/30/17 10:55 Lasix IVPUSH 07/30/17 10:47 40 mg NOW ONE Administration Metoprolol Tartrate 5 mg 07/30/17 10:04 07/30/17 10:28 Lopressor IVPUSH 07/30/17 10:05 5 mg ONETIME ONE Administration Nitroglycerin 1 gm 07/30/17 11:32 07/30/17 11:42 Nitro-Bid 2% TOP 07/30/17 11:33 1 gm ONETIME ONE Administration Rosuvastatin Calcium 20 mg 07/30/17 11:30 07/30/17 11:42 Crestor PO 07/30/17 11:31 20 mg ONETIME ONE Administration - Radiology Interpretation Free Text/Narrative:: 81-year-old female attends the ED with reported transient central chest heaviness or pressure discomfort. It occurred last night lasted for 2-3 minutes. It occurred again this morning and she seemed to lose her zip. She had to get her daughter to help her get dressed. She felt a little more short of breath than normal. Of note she slept fairly well last night. Examination revealed clear lung ndiaye with no sign of congestive failure. Initial ECG showed sinus rhythm at 68/m with some evidence of perhaps septal hypertrophy pattern from chronic hypertension. There were near Q waves in leads 3 and aVF. Consider old inferior wall myocardial infarction. Plan routine labs including cardiac markers and BNP. One view chest x-ray to be done. - Re-Assessments/Exams Free Text/Narrative Re-Assessment/Exam: 07/30/17 09:58 patient did develop SVT and ECG captured this at approximately 948 hours. Weight was up to about 1 55/m. There was mildly creased ST segment depression V4 ,V5, V6 this was not associate with any chest pressure discomfort. She was not aware of her heart beating fast or fluttering. Given 6 mg of Adenocard with conversion back to sinus rhythm at 68/m. patient may have electrolyte abnormalities since she's been ill with gastroenteritis i.e. potential hypokalemia. Will await her labs. Blood pressure at this time is 105/ 63. Will give Lopressor 5 mg IV slowly over 2-3 minutes in an attempt to prevent recurrence of SVT. 07/30/17 10:35 Labs reveal a white count of 7.48 with 76% neutrophils and no bands. Hemoglobin is 15.7 with hematocrit of 46.4. Platelet count is normal at 10 31,000. PT was 10.3 with an INR of 0.95. Sodium 137 potassium normal at 3.9. Chloride 105 bicarbonate 19 which is slightly low. Anion gap is elevated at 16.9 indicating some degree of volume depletion. BUN is 10 with a creatinine of 1.3. GFR is 39 i.e. stage III chronic kidney disease. Glucose is 137. Calcium normal 8.9 magnesium slightly low at 1.6. Bilirubin normal at 0.7. Liver function normal troponin I is elevated at 2.282 with a CK-MB elevation of 8.8 indicating recent myocardial infarction. C-reactive protein is 0.2. BNP is 2681.. Patient IV weekly will be reduced to 100 mils per hour. She'll be given Lasix 40 mg IV. She'll be given Lovenox 90 mg subcutaneously and the abdominal wall. Has received aspirin 324 mg chewed. Patient may need to transfer to a cardiology unit. She has not been to either [facility] in the past but Dr. Puga is her primary care physician at [place]. I will therefore call [facility]. Patient will also be given 2 g of magnesium IV over the next 2 hours. 07/30/17 11:04 fourth ECG shows sinus rhythm at a sinus bradycardia at 54/m. Early R-wave transition suggestive of septal hypertrophy pattern. Near Q-wave in lead 3 and aVF suggestive of an old inferior wall myocardial infarction. No evidence of ST segment elevation. I did speak with colleter at [facility] Dr. Hutson and she has accepted the patient in transfer as well as Dr. Balderas-hospitlaist whom has accepted care. They have requested Lipitor 80 mg by mouth which we do not have in our hospital. Substantial be Crestor 20 mg by mouth. Nitropaste 1 g will be applied to anterior chest. However eminences currently out in a transport to [place]. We are awaiting transport by [facility]. 07/30/17 11:57 Patient is discharged from the ED. Departure - Departure Time of Disposition: 11:50 Disposition: DC/Tfer to Acute Hospital 02 Reason for Transfer *Q: Other Condition: Fair Clinical Impression: Paroxysmal supraventricular tachycardia, Hypomagnesemia Acute myocardial infarction Qualifiers: Myocardial infarction ST status: non-ST elevation myocardial infarction Qualified Code(s): I21.4 - Non-ST elevation (NSTEMI) myocardial infarction CHF (congestive heart failure) Qualifiers: Congestive heart failure type: unspecified Congestive heart failure chronicity : acute Qualified Code(s): I50.9 - Heart failure, unspecified Referrals: Ginny Puga MD [Primary Care Provider] - Forms: ED Department Discharge Additional Instructions: Patient was transferred to [facility] in [facility] under the care of Dr. Balderas- hospitalist and Dr. Hutson colleter. - My Orders Last 24 Hours: My Active Orders 07/30/17 09:43 EKG Documentation Completion [RC] STAT 07/30/17 09:45 Sodium Chloride 0.9% [Normal Saline] 1,000 ml IV ASDIRECTED 07/30/17 09:55 EKG 12 Lead [EK] Stat 07/30/17 10:02 EKG Documentation Completion [RC] ASDIRECTED 07/30/17 10:39 Communication Order [RC] STAT 07/30/17 10:40 Communication Order [RC] STAT 07/30/17 10:47 Magnesium Sulfate/Water [Magnesium Sulfate 2 GM in Water 50 ML] 2 gm Premix Bag 1 bag IV ONETIME 07/30/17 10:59 EKG Documentation Completion [RC] ASDIRECTED EKG 12 Lead [EK] Stat - Assessment/Plan Last 24 Hours: My Active Orders 07/30/17 09:43 EKG Documentation Completion [RC] STAT 07/30/17 09:45 Sodium Chloride 0.9% [Normal Saline] 1,000 ml IV ASDIRECTED 07/30/17 09:55 EKG 12 Lead [EK] Stat 07/30/17 10:02 EKG Documentation Completion [RC] ASDIRECTED 07/30/17 10:39 Communication Order [RC] STAT 07/30/17 10:40 Communication Order [RC] STAT 07/30/17 10:47 Magnesium Sulfate/Water [Magnesium Sulfate 2 GM in Water 50 ML] 2 gm Premix Bag 1 bag IV ONETIME 07/30/17 10:59 EKG Documentation Completion [RC] ASDIRECTED EKG 12 Lead [EK] Stat
[2017-07-30] MEDS ORDERED: Adenosine 6 MG/2 ML SDV IVPUSH ONE (09:50)
[2017-07-30] MEDS ORDERED: Adenosine 6 MG/2 ML SDV ONE (09:57)
[2017-07-30] MEDS ORDERED: Metoprolol Tartrate 5 MG/5 ML SDV IVPUSH ONE (10:04)
[2017-07-30] MEDS ORDERED: Aspirin 81 MG Tab.Chew PO ONE (10:23)
[2017-07-30] MEDS ORDERED: Aspirin 81 MG Tab.Chew ONE (10:30)
[2017-07-30] MEDS ORDERED: Enoxaparin 80 MG/0.8 ML Syringe SUBCUT ONE (10:33)
[2017-07-30] MEDS ORDERED: Furosemide 40 MG/4 ML VIAL IVPUSH ONE (10:46)
[2017-07-30] MEDS ORDERED: Magnesium Sulfate/Water 2 GM in Premix Bag 1 BAG IV ONE (10:47)
[2017-07-30] MEDS ORDERED: Rosuvastatin 10 MG Tab PO ONE (11:30)
[2017-07-30] MEDS ORDERED: Nitroglycerin 2% Oint 1 GM UD Packet TOP ONE (11:32)
--- NOTE | 2017-07-30 11:35 | CR ---
Chest: Portable view of the chest was obtained. Comparison: Prior chest x-ray of 06/27/17. Heart size is normal. Tortuous thoracic aorta is seen. Slight parenchymal density is noted within the upper right lung believed to represent costochondral calcification. Lungs otherwise are clear. Bony structures are grossly intact. Impression: 1. Nothing acute is seen on portable chest x-ray. Diagnostic code #2
[2017-07-30 11:44] VITALS: BP 113/63
== END 2017-07-30 11:58 ==
LOC: JD.ED 09:23
DX: I21.4 Non-ST elevation (NSTEMI) myocardial infarction (principal); I50.9 Heart failure, unspecified; E83.42 Hypomagnesemia; I47.1 Supraventricular tachycardia; E78.00 Pure hypercholesterolemia, unspecified; K21.9 Gastro-esophageal reflux disease without esophagitis; E66.9 Obesity, unspecified; Z88.5 Allergy status to narcotic agent; Z88.8 Allergy status to other drugs, medicaments and biological substances; Z88.1 Allergy status to other antibiotic agents
CPT/HCPCS: 36415; 71045; 80053; 82553; 83735; 83880; 84484; 85025; 85610; 86140; 93005; 96361; 96365; 96372; 96375; 99285; A9270; J0153; J1650; J1940; J7040; 93010; J3475; J3490

== ENCOUNTER 2018-07-24 12:42 | Emergency (ER) | payer MEDICARE, BC ==
[2018-07-24 12:58] VITALS: BP 153/72
[2018-07-24] MEDS ORDERED: Ondansetron 4 MG/2 ML SDV IVPUSH ONE (13:01)
[2018-07-24] MEDS ORDERED: Sodium Chloride 0.9% 1,000 ML IV STA (13:01)
[2018-07-24] MEDS: Sodium Chloride 0.9% 10 ML Syringe FLUSH PRN ×2 (13:23→14:30)
--- NOTE | 2018-07-24 14:12 | EDM.PDOC ---
ED HPI GENERAL MEDICAL PROBLEM - General Chief Complaint: Abdominal Pain Stated Complaint: NAUSEA/R SIDE ABD PAIN/BACK PAIN Time Seen by Provider: 07/24/18 12:53 Source of Information: Reports: Patient History Limitations: Reports: No Limitations - History of Present Illness INITIAL COMMENTS - FREE TEXT/NARRATIVE: The patient presents for right lower abdominal pain. This started a couple days ago. She did have nausea and she vomited. She was seen at the clinic a couple days ago and she did not hear how her labs are doing. The pain does come and go and it is worse wil[place] she is laying down and radiates to her back. She did have some burning with urination a couple times. She is not going more often or having the urge to urinate. She did say her urine had some WBCs from what she was told at the clinic. She has no fever, chills, cough, congestion, chest pain or shortness of breath. She still has her appendix. Onset: Gradual Duration: Day(s): Location: Reports: Abdomen Quality: Reports: Sharp Severity: Moderate Improves with: Reports: None Worsens with: Reports: Other (Laying down flat) Associated Symptoms: Reports: Nausea/Vomiting. Denies: Chest Pain, Cough, Fever /Chills, Headaches, Shortness of Breath Right Abdomen Pain Score (Numeric/FACES): 8 - Related Data Allergies Allergy/AdvReac Type Severity Reaction Status Date / Time codeine Allergy Difficulty Verified 12/05/17 13:23 Breathing esomeprazole magnesium Allergy Edema Verified 12/05/17 13:23 [From Nexium] losartan potassium Allergy Hives Verified 12/05/17 13:23 [From Cozaar] COLLINS Inhibitors AdvReac Diarrhea Verified 12/05/17 13:23 aspirin AdvReac Fatigue Verified 12/05/17 13:23 erythromycin base AdvReac Nausea and Verified 12/05/17 13:23 Vomiting meperidine HCl [From Demerol] AdvReac Irritabilit Verified 12/05/17 13:23 y Home Meds: Home Meds Carboxymethylcellulos/Glycerin [Lubricant 0.5-0.9% Eye Drops] 2 drop EYEBOTH TID PRN 01/25/15 [History] Aspirin [[place] Aspirin] 81 mg PO DAILY 08/29/17 [History] Clopidogrel [Plavix] 75 mg PO DAILY 08/29/17 [History] Multivitamin [Multivitamins] 1 each PO DAILY 08/29/17 [History] Carvedilol [Coreg] 3.125 mg PO BID 07/24/18 [History] Isosorbide Mononitrate [Imdur] 30 mg PO DAILY 07/24/18 [History] Nitroglycerin [Nitrostat] 0.4 mg SL ASDIRECTED 07/24/18 [History] [place]-3 Fatty Acids [[place]-3] 1,000 mg PO DAILY 07/24/18 [History] Omeprazole 20 mg PO DAILY 07/24/18 [History] Ondansetron [Zofran ODT] 4 mg PO Q6H PRN #20 tab.dis 07/24/18 [Rx] Ramipril 2.5 mg PO DAILY 07/24/18 [History] Ranitidine [Zantac] 150 mg PO DAILY 07/24/18 [History] Tamsulosin [Flomax] 0.4 mg PO DAILY 07/24/18 [History] Past Medical History Cardiovascular History: Reports: High Cholesterol, [place] Other Cardiovascular History: not on meds anymore and is controlling it by diet. Gastrointestinal History: Reports: GERD, Hemorrhoids Genitourinary History: Reports: UTI, Recurrent STATE HISTORICAL SOCIETY DIRECTOR History: Reports: , Other (See Below) Other STATE HISTORICAL SOCIETY DIRECTOR History: states vaginal bleeding, intermittent 07/2017 Musculoskeletal History: Reports: Back Pain, Chronic Endocrine/Metabolic History: Reports: Obesity/BMI 30+ - Infectious Disease History Infectious Disease History: Reports: Chicken Pox, Influenza, Measles, Mumps - Past Surgical History HEENT Surgical History: Reports: Cataract Surgery Other HEENT Surgeries/Procedures: bi-lat eyes Cardiovascular Surgical History: Reports: None GI Surgical History: Reports: Cholecystectomy, Colonoscopy, Other (See Below) Other GI Surgeries/Procedures: small hernias to abdomen Female Surgical History: Reports: None Endocrine Surgical History: Reports: None Musculoskeletal Surgical History: Reports: None Social & Family History - Family History Family Medical History: Noncontributory - Tobacco Use Smoking Status *Q: Never Smoker - Caffeine Use Caffeine Use: Reports: Coffee, Tea Other Caffeine Use: states usually drinks decaff coffee aND A RARE OCCASSIONAL POP - Recreational Drug Use Recreational Drug Use: No - Living Situation & Occupation Living situation: Reports: Occupation: Retired ED ROS GENERAL - Review of Systems Review Of Systems: See Below Constitutional: Reports: No Symptoms HEENT: Reports: No Symptoms Respiratory: Reports: No Symptoms Cardiovascular: Reports: No Symptoms Endocrine: Reports: No Symptoms GI/Abdominal: Reports: Abdominal Pain, Nausea, Vomiting. Denies: Diarrhea : Reports: No Symptoms Musculoskeletal: Reports: No Symptoms ED EXAM, GI/ABD - Physical Exam Exam: See Below Exam Limited By: No Limitations General Appearance: Alert, No Apparent Distress Ears: Normal External Exam Nose: Normal Inspection Head: Atraumatic, Normocephalic Neck: Normal Inspection Respiratory/Chest: No Respiratory Distress, Lungs Clear, Normal Breath Sounds Cardiovascular: Regular Rate, Rhythm, No Murmur GI/Abdominal Exam: Soft, No Organomegaly, No Mass, Tender (Mild tenderness to the left lower abdomen) Back Exam: Normal Inspection Extremities: Normal Inspection Course - Vital Signs Last Recorded V/S: Last Vital Signs Temp 96.8 F 07/24/18 12:57 Pulse 63 07/24/18 12:57 Resp 20 07/24/18 12:57 BP 153/72 H 07/24/18 12:57 Pulse Ox 96 07/24/18 12:57 - Orders/Labs/Meds Orders: Active Orders 24 hr Category Date Time Status Peripheral IV Care [RC] . DIRECTED Care 07/24/18 13:01 Active Sodium Chloride 0.9% [Normal Saline] 1,000 ml Med 07/24/18 14:45 Active IV ASDIRECTED Sodium Chloride 0.9% [Saline Flush] Med 07/24/18 13:01 Active 10 ml FLUSH ASDIRECTED PRN Sodium Chloride 0.9% [Saline Flush] Med 07/24/18 14:28 Active 10 ml FLUSH ONETIME PRN ED Antiemetic Medication Reflex [OM.PC] Stat Oth 07/24/18 13:01 Ordered Peripheral IV Insertion Adult [OM.PC] Stat Oth 07/24/18 13:01 Ordered Medication Orders Sodium Chloride (Normal Saline) 1,000 mls @ 150 mls/hr IV ASDIRECTED VALERIE Last Admin: 07/24/18 14:53 Dose: 150 mls/hr Sodium Chloride (Saline Flush) 10 ml FLUSH ASDIRECTED PRN PRN Reason: Keep Vein Open Last Admin: 07/24/18 14:30 Dose: 10 ml Admin: 07/24/18 13:23 Dose: 10 ml Sodium Chloride (Saline Flush) 10 ml FLUSH ONETIME PRN PRN Reason: KEEP VEIN OPEN Last Admin: 07/24/18 14:53 Dose: 10 ml Labs: Laboratory Tests 07/24/18 07/24/18 07/24/18 Range/Units 13:15 13:15 14:27 WBC 4.63 (3.98-10.04) K/mm3 RBC 4.71 (3.98-5.22) M/mm3 Hgb 14.6 (11.2-15.7) gm/L Hct 43.3 (34.1-44.9) % MCV 91.9 (79.4-94.8) fl MCH 31.0 (25.6-32.2) pg MCHC 33.7 (32.2-35.5) g/dl RDW Std Deviation 42.5 (36.4-46.3) fL Plt Count 228 (182-369) K/mm3 MPV 9.7 (9.4-12.3) fl Neut % (Auto) 68.0 (34.0-71.1) % Lymph % (Auto) 17.9 L (19.3-51.7) % [place] % (Auto) 9.9 (4.7-12.5) % Eos % (Auto) 3.2 (0.7-5.8) Baso % (Auto) 0.6 (0.1-1.2) % Neut # (Auto) 3.14 (1.56-6.13) K/mm3 Lymph # (Auto) 0.83 L (1.18-3.74) K/mm3 [place] # (Auto) 0.46 H (0.24-0.36) K/mm3 Eos # (Auto) 0.15 (0.04-0.36) K/mm3 Baso # (Auto) 0.03 (0.01-0.08) K/mm3 Sodium 138 (136-145) mEq/L Potassium 3.7 (3.5-5.1) mEq/L Chloride 102 (98-107) mEq/L Carbon Dioxide 26 (21-32) mEq/L Anion Gap 13.7 (5-15) BUN 10 (7-18) mg/dL Creatinine 1.4 H (0.55-1.02) mg/dL Est Cr Clr Drug Dosing 28.36 mL/min Estimated GFR (MDRD) 36 (>60) mL/min BUN/Creatinine Ratio 7.1 L (14-18) Glucose 143 H (83-115) mg/dL Calcium 8.9 (8.5-10.1) mg/dL Total Bilirubin 0.6 (0.2-1.0) mg/dL AST 21 (15-37) U/L ALT 23 (14-59) U/L Alkaline Phosphatase 55 (46-116) U/L Total Protein 6.8 (6.4-8.2) g/dl Albumin 3.7 (3.4-5.0) g/dl Globulin 3.1 gm/dL Albumin/Globulin Ratio 1.2 (1-2) Lipase 209 (73-393) U/L Urine Color Light yellow (Yellow) Urine Appearance Clear (Clear) Urine pH 7.0 (5.0-8.0) Ur Specific [place] 1.015 (1.005-1.030) Urine Protein Negative (Negative) Urine Glucose (UA) Negative (Negative) Urine Ketones Negative (Negative) Urine Occult Blood Negative (Negative) Urine Nitrite Negative (Negative) Urine Bilirubin Negative (Negative) Urine Urobilinogen 0.2 (0.2-1.0) Ur Leukocyte Esterase Negative (Negative) Urine RBC 0-5 (0-5) /hpf Urine WBC 0-5 (0-5) /hpf Ur Epithelial Cells 0-5 (0-5) /hpf Urine Bacteria Few (FEW) /hpf Urine Mucus Not seen (FEW) /hpf Meds: Medications Generic Name Dose Route Start Last Admin Trade Name Freq PRN Reason Stop Dose Admin Sodium Chloride 1,000 mls @ 150 mls/hr 07/24/18 14:45 07/24/18 14:53 Normal Saline IV 150 mls/hr ASDIRECTED VALERIE Administration Sodium Chloride 10 ml 07/24/18 13:01 07/24/18 14:30 Saline Flush FLUSH 10 ml ASDIRECTED PRN Administration Keep Vein Open Sodium Chloride 10 ml 07/24/18 14:28 07/24/18 14:53 Saline Flush FLUSH 10 ml ONETIME PRN Administration KEEP VEIN OPEN Discontinued Medications Generic Name Dose Route Start Last Admin Trade Name Freq PRN Reason Stop Dose Admin Diatrizoate Meglum/Diatrizoate Sod 60 ml 07/24/18 14:27 07/24/18 14:30 Gastrografin 37% PO 07/24/18 14:28 60 ml ONETIME ONE Administration Sodium Chloride 1,000 mls @ 1,000 mls/hr 07/24/18 13:01 07/24/18 13:22 Normal Saline IV 07/24/18 14:00 1,000 mls/hr .BOLUS STA Administration Iopamidol 100 ml 07/24/18 14:28 07/24/18 14:30 Isovue-300 (61%) IVPUSH 07/24/18 14:29 100 ml ONETIME ONE Administration Ondansetron HCl 4 mg 07/24/18 13:01 07/24/18 14:41 Zofran IVPUSH 07/24/18 13:02 Not Given ONETIME ONE - Re-Assessments/Exams Free Text/Narrative Re-Assessment/Exam: 07/24/18 17:53 I ordered an IV NS 500ml bolus, zofran 4mg IV, labs, UA and a CT of her abdomen and pelvis. Her CBC looks good. Her creatinine was slightly elevated at 1.4. Her glucose was normal at 143. Her UA shows no UTI. Her CT shows incidental findings. Nothing acute is appreciated on CT study of the abdomen and pelvis. No significant change from previous CT's is seen. She feels better. I will discharge her home. Departure - Departure Time of Disposition: 16:30 Disposition: Home, Self-Care 01 Condition: Good Clinical Impression: Nausea Abdominal pain Qualifiers: Abdominal location: left lower quadrant Qualified Code(s): R10.32 - Left lower quadrant pain - Discharge Information *PRESCRIPTION DRUG MONITORING PROGRAM REVIEWED*: No *COPY OF PRESCRIPTION DRUG MONITORING REPORT IN PATIENT BRAYAN: No Prescriptions: Ondansetron [Zofran ODT] 4 mg PO Q6H PRN #20 tab.dis PRN Reason: Nausea\vomiting Instructions: Nausea, Adult, Abdominal Pain, Adult, [id number] Referrals: Ginny Puga MD [Primary Care Provider] - Forms: ED Department Discharge Additional Instructions: Drink plenty of fluids. Take the zofran every 6 hours as needed for nausea and vomiting. Please return if you are worse. - My Orders Last 24 Hours: My Active Orders 07/24/18 13:01 Peripheral IV Care [RC] . DIRECTED Sodium Chloride 0.9% [Saline Flush] 10 ml FLUSH ASDIRECTED PRN ED Antiemetic Medication Reflex [OM.PC] Stat Peripheral IV Insertion Adult [OM.PC] Stat 07/24/18 14:28 Sodium Chloride 0.9% [Saline Flush] 10 ml FLUSH ONETIME PRN 07/24/18 14:45 Sodium Chloride 0.9% [Normal Saline] 1,000 ml IV ASDIRECTED - Assessment/Plan Last 24 Hours: My Active Orders 07/24/18 13:01 Peripheral IV Care [RC] . DIRECTED Sodium Chloride 0.9% [Saline Flush] 10 ml FLUSH ASDIRECTED PRN ED Antiemetic Medication Reflex [OM.PC] Stat Peripheral IV Insertion Adult [OM.PC] Stat 07/24/18 14:28 Sodium Chloride 0.9% [Saline Flush] 10 ml FLUSH ONETIME PRN 07/24/18 14:45 Sodium Chloride 0.9% [Normal Saline] 1,000 ml IV ASDIRECTED
[2018-07-24] MEDS ORDERED: Diatrizoate Meglumine/Diatrizoate Sodium 37% 120 ML Bottle PO ONE (14:27)
[2018-07-24] MEDS ORDERED: Iopamidol 612 MG/ML 100 ML Bottle IVPUSH ONE (14:28)
[2018-07-24] MEDS ORDERED: Sodium Chloride 0.9% 10 ML Syringe FLUSH PRN (14:28)
[2018-07-24] MEDS ORDERED: Sodium Chloride 0.9% 1,000 ML IV SCH (14:45)
--- NOTE | 2018-07-24 14:59 | CT ---
CT abdomen and pelvis Technique: Multiple axial sections were obtained from above the dome of the diaphragm inferiorly through the pubic symphysis. Intravenous and oral contrast was utilized. Delayed images were obtained through the bladder. Comparison: Prior CT abdomen and pelvis study of 06/27/17. Findings: Visualized lung bases shows nothing acute. Moderately large hiatal hernia is noted. Liver shows no focal parenchymal abnormality. Spleen appears normal in size. Small low density finding is noted within the upper spleen measuring about 1.0 cm in size which appears to be similar to previous exam and is most likely incidental. Adrenal glands show no nodule. Pancreas is within normal limits. Surgical clips are seen from prior cholecystectomy. Kidneys show mild diffuse cortical thinning. Kidney show symmetric contrast enhancement. There is scarring noted within the upper right kidney. Small low density finding is noted off the mid to lower left kidney which is a stable finding from previous studies and most likely due to small cyst. Delayed images shows contrast within the distal ureters as well as contrast within the bladder. Aorta shows atherosclerotic calcification without aneurysm. No retroperitoneal adenopathy or mesenteric abnormalities are seen. No pelvic mass or adenopathy is seen. Appendix is seen and is felt to be normal in size. No free fluid or inflammatory change is seen. Bone window settings were reviewed which show scattered degenerative change throughout the spine as well as osteopenia. Impression: 1. Incidental findings as noted above. Nothing acute is appreciated on CT study of the abdomen and pelvis. No significant change from previous CT's is seen. Diagnostic code #2
== END 2018-07-24 16:48 | disposition home or self-care (01) ==
LOC: JD.ED 12:42
DX: R10.32 Left lower quadrant pain (principal); R11.2 Nausea with vomiting, unspecified; E78.00 Pure hypercholesterolemia, unspecified; I25.2 Old myocardial infarction; K21.9 Gastro-esophageal reflux disease without esophagitis; Z79.82 Long term (current) use of aspirin; Z79.02 Long term (current) use of antithrombotics/antiplatelets; Z79.891 Long term (current) use of opiate analgesic; Z79.899 Other long term (current) drug therapy; Z88.1 Allergy status to other antibiotic agents; Z88.5 Allergy status to narcotic agent; Z88.6 Allergy status to analgesic agent; Z88.8 Allergy status to other drugs, medicaments and biological substances; Z90.49 Acquired absence of other specified parts of digestive tract; Z87.440 Personal history of urinary (tract) infections; Z98.890 Other specified postprocedural states; Z98.49 Cataract extraction status, unspecified eye
CPT/HCPCS: 36415; 74177; 80053; 81001; 83690; 85025; 96360; 96361; 99284; J7040; Q9963; Q9967

== ENCOUNTER 2018-08-07 07:56 | Day surgery (SDC) | payer MEDICARE, BC ==
[~2018-08-07 07:56] MED LIST: Lactated Ringers 1,000 ML IV SCH; Lidocaine 1%/Sod Bicarbonate in NS 8.4% 1 ML Syringe IDERM PRN; Sodium Chloride 0.9% 10 ML Syringe FLUSH PRN
--- NOTE | 2018-08-07 08:50 | PCM.PREANE ---
Preanesthetic Assessment - Procedure Proposed Procedure: Diagnostic EGD/ Colonoscopy - Anesthesia/Transfusion/Family Hx Anesthesia History: Prior Anesthesia Without Reaction Family History of Anesthesia Reaction: No Transfusion History: No Prior Transfusion(s) - Review of Systems General: No Symptoms Pulmonary: No Symptoms Cardiovascular: Other (HTN, CAD, on Plavix (last taken 08/01/18), Cardiac Cath - NSTEMI, Saw cardiology 05/24 and Ok'd for procedure, EF 60-65%, hyperlipidemia, SVT) Gastrointestinal: Abdominal Pain, Nausea, Vomiting, Other (HX gastritis, GERD) Neurological: No Symptoms Other: Reports: Easy Bleeding, Easy Bruising (on plavix) - Physical Assessment NPO Status Date: 08/06/18 NPO Status Time: 21:30 Pulse: 53 O2 Sat by Pulse Oximetry: 93 Respiratory Rate: 20 Blood Pressure: 141/52 Temperature: 36.8 C Height: 1.65 m Weight: 88.451 kg ASA Class: 3 Mental Status: Alert & Oriented x3 Airway Class: Mallampati = 2 Dentition: Reports: Implants (lower left ) Thyro-Mental Finger Breadths: 3 Mouth Opening Finger Breadths: 3 ROM/Head Extension: Full Lungs: Clear to Auscultation, Normal Respiratory Effort Cardiovascular: Regular Rhythm, Bradycardia - Allergies Allergies/Adverse Reactions: Allergies Allergy/AdvReac Type Severity Reaction Status Date / Time codeine Allergy Difficulty Verified 08/06/18 13:14 Breathing; "Passed Out" esomeprazole magnesium Allergy Elevated Verified 08/06/18 13:14 [From Nexium] Liver Enzymes hydrochlorothiazide Allergy Hyponatremi Verified 08/06/18 13:14 a losartan potassium Allergy Hives Verified 08/06/18 13:14 [From Cozaar] rofecoxib [From Vioxx] Allergy Elevated Verified 08/06/18 13:14 Blood Pressure COLLINS Inhibitors AdvReac Diarrhea Verified 08/06/18 13:14 aspirin AdvReac Fatigue Verified 08/06/18 13:14 erythromycin base AdvReac Nausea and Verified 08/06/18 13:14 Vomiting meperidine HCl [From Demerol] AdvReac Irritabilit Verified 08/06/18 13:14 y - Blood Blood Available: No Product(s) Available: None - Anesthesia Plan Pre-Op Medication Ordered: Beta Irma Beta Irma: Metoprolol Med Last Dose Date: 08/07/18 Med Last Dose Time: 06:30 - Acknowledgements Anesthesia Type Planned: MAC Pt an Appropriate Candidate for the Planned Anesthesia: Yes Alternatives and Risks of Anesthesia Discussed w Pt/Guardian: Yes Pt/Guardian Understands and Agrees with Anesthesia Plan: Yes PreAnesthesia Questionnaire HEENT History: Reports: Cataract, Hard of Hearing, Impaired Vision Cardiovascular History: Reports: CAD, High Cholesterol, Hypertension, [place], Other (See Below) Other Cardiovascular History: NSTEMI 07/2017 affecting the LAD Gastrointestinal History: Reports: Colon Polyp, Diverticulosis, Gastritis, GERD Genitourinary History: Reports: UTI, 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 Miranda 2017 Musculoskeletal History: Reports: Gout Psychiatric History: Reports: Depression Endocrine/Metabolic History: Reports: Obesity/BMI 30+ - Infectious Disease History Infectious Disease History: Reports: Chicken Pox, Influenza, Measles, Mumps - Past Surgical History HEENT Surgical History: Reports: Cataract Surgery Cardiovascular Surgical History: Reports: Other (See Below) Other Cardiovascular Surgeries/Procedures: Angiogram, Echocardiogram Respiratory Surgical History: Reports: None GI Surgical History: Reports: Cholecystectomy, Colon, EGD, Other (See Below) Other GI Surgeries/Procedures: Hemorrhoid Banding Female Surgical History: Reports: None Endocrine Surgical History: Reports: None Neurological Surgical History: Reports: None Musculoskeletal Surgical History: Reports: Other (See Below) Other Musculoskeletal Surgeries/Procedures:: Bilateral Foot/Toe Surgery Dermatological Surgical History: Reports: None - SUBSTANCE USE Smoking Status *Q: Never Smoker Recreational Drug Use History: No - HOME MEDS Home Medications: Home Meds Aspirin [[place] Aspirin] 81 mg PO DAILY 08/29/17 [History] Clopidogrel [Plavix] 75 mg PO DAILY 08/29/17 [History] Ondansetron [Zofran ODT] 4 mg PO Q6H PRN #20 tab.dis 07/24/18 [Rx] RX: Nitroglycerin [Nitrostat] 0.4 mg SL ASDIRECTED 07/24/18 [History] Acetaminophen [Tylenol Extra Strength] 1,000 mg PO BID PRN 08/06/18 [History] Docusate Sodium [Colace] 100 mg PO BID PRN 08/06/18 [History] LORazepam [Ativan] 0.5 mg PO DAILY PRN 08/06/18 [History] Pantoprazole Sodium [Protonix] 40 mg PO QAM 08/06/18 [History] RX: Metoprolol Succinate [Toprol XL] 25 mg PO DAILY 08/06/18 [History] RX: Rosuvastatin [Crestor] 10 mg PO DAILY 08/06/18 [History] RX: Sertraline [Zoloft] 75 mg PO DAILY 08/06/18 [History] RX: amLODIPine [Norvasc] 5 mg PO DAILY 08/06/18 [History] - CURRENT (IN HOUSE) MEDS Current Meds: Current Medications Lactated Ringer's (Ringers, Lactated) 1,000 mls @ 125 mls/hr IV ASDIRECTED VALERIE Stop: 08/07/18 23:00 Lidocaine/Sodium Bicarbonate (Buffered Lidocaine 1% In Ns 8.4%) 0.25 ml IDERM ONETIME PRN PRN Reason: Prior to IV Start Stop: 08/07/18 18:00 Sodium Chloride (Saline Flush) 10 ml FLUSH ASDIRECTED PRN PRN Reason: Keep Vein Open Stop: 08/07/18 18:00
[2018-08-07] MEDS ORDERED: fentaNYL 100 MCG/2 ML SDV ONE (10:03)
[2018-08-07] MEDS ORDERED: Propofol 200 MG/20 ML SDV ONE ×3 (10:03→11:00)
[2018-08-07] MEDS ORDERED: Lidocaine 1% 4 ML ONE (10:05)
--- NOTE | 2018-08-07 11:33 | PCM.OPNOTE ---
- General Post-Op/Procedure Note Date of Surgery/Procedure: 08/07/18 Operative Procedure(s): Diagnostic EGD and diagnostic colonoscopy with polypectomy and hemorrhoid banding Findings: 1. Gastritis with diffuse gastric polyps 2. 2cm Hiatal hernia 3. Esophagitis 4. Colon polyps 5. Diverticulosis 6. Internal hemorrhoids, grade I Pre Op Diagnosis: Abdominal pain, nausea, vomiting, diarrhea Post-Op Diagnosis: same Anesthesia Technique: MAC Primary Surgeon: Shae You Anesthesia Provider: Michael Mathew Pathology: 1. Gastric antrum for H. pylori 2. Lesser curvature gastric biopsy 3. Cecal polyp x2 4. Hepatic flexure polyp 5. Transverse colon polyp x4 6. Descending colon polyp x2 7. Sigmoid colon polyp x4 EBL in mLs: 0 Complications: none apparent Condition: Good
--- NOTE | 2018-08-07 11:35 | PCM.PRNOTE ---
- Free Text/Narrative Note: Operative Report Date of Procedure: August 07, 2018 Pre Op Diagnosis: Abdominal pain, nausea and vomiting, and diarrhea Post-Op Diagnosis: Same Operative Procedures: 1. EGD with biopsy 2. Colonoscopy to the cecum with polypectomy and hemorrhoid banding Primary Surgeon: Shae You MD Anesthesia Provider: Jennifer Mathew CRNA Anesthesia Technique: MAC IV Fluid Replacement, Intraop: 800 cc crystalloid Output, Urine Amount: 0cc EBL in mLs: 0 cc Findings: 1. Gastritis with diffuse gastric polyps 2. 2cm Hiatal hernia 3. Esophagitis 4. Colon polyps 5. Diverticulosis 6. Internal hemorrhoids, grade I Specimens: 1. Gastric antrum for H. pylori 2. Lesser curvature gastric biopsy 3. Cecal polyp x2 4. Hepatic flexure polyp 5. Transverse colon polyp x4 6. Descending colon polyp x2 7. Sigmoid colon polyp x4 Drain/Tubes: None Indication: The patient is an 82-year-old lady who presented to the clinic with, abdominal pain, nausea and vomiting, and diarrhea. The patient reported symptoms of loading in addition. She has a history of colon polyps. The patient was consented for a diagnostic EGD and colonoscopy. Risks of bleeding, and perforation were discussed, and the patient agreed to the risks and wished to proceed. Description of the procedure: The patient was taken back to the endoscopy suite, and placed in the left lateral decubitus position. Local anesthetic to the oropharynx was administered , and a bite block was placed. The patient was sedated with MAC anesthesia. The Olympus video endoscope was inserted into the oropharynx and guided under direct vision into the esophagus, stomach, and duodenum. The gastric antrum was inspected and cold biopsy forceps were used to take tissue samples for H. pylori. The duodenal bulb and second portion of the duodenum were unremarkable. The scope was withdrawn to the stomach and retroflexed. There was increased fluid that appeared bilious. There were areas of erythema as well as edema causing a cobblestoned appearance of the gastric mucosa. There were diffuse gastric polyps. A biopsy was taken of the mucosa in the lesser curvature to be sent for pathology evaluation. No erosions or ulcers were noted. The scope was withdrawn to the esophagus. A this point we noted a 2 cm sliding hiatal hernia. The Z-line and gastroesophageal junction were located at about 39 and 37 cm, respectively. No Barretts esophagus changes were noted. The endoscope was then withdrawn Next, anorectal examination was performed. There were anal skin tags as well as some hemorrhoidal tissue palpated on digital rectal exam. The scope was placed into the rectum and advanced to cecum. Upon reaching the cecum, and the patients cecum was entered. There was mild tortuosity of the colon. The ileocecal valve was well visualized and the appendiceal orifice identified. At this point, the scope was slowly withdrawn, paying attention to the mucosa. The patient had good bowel prep, 90-95 % of the mucosa was visible. . Multiple polyps were seen. 20 polyps measuring 2-3 mm were seen in the cecum and removed using cold biopsy forceps. A hepatic flexure polyp that was 2 mm and flat was removed using cold biopsy forceps. Additional polyps were seen in the transverse colon; one measured approximately 6 mm and was sessile and irregular , this was removed using cold biopsy forceps in piecemeal fashion. Three additional polyps were flat and measured 2-4 mm, also removed with cold biopsy forceps. Two flat polyps were seen in the descending colon, measuring 2-3 mm, removed with cold biopsy forceps was noted. Four polyps measuring 1-2 mm were seen in the sigmoid colon and removed with cold biopsy forceps. These did appear hyperplastic and flat. In the rectum, the scope was retroflexed and some hemorrhoidal tissue was noted. The scope was placed back in the lumen and excess air was aspirated. The scope was removed. The patient tolerated the procedure very well. Complications: None apparent Condition: The patient was transported to PACU in stable condition. Shae You MD General Surgery
--- NOTE | 2018-08-07 11:36 | PCM48HPAN ---
Post Anesthesia Note - EVALUATION WITHIN 48HRS OF ANESTHETIC Vital Signs in Normal Range: Yes Patient Participated in Evaluation: Yes Respiratory Function Stable: Yes Airway Patent: Yes Cardiovascular Function Stable: Yes Hydration Status Stable: Yes Pain Control Satisfactory: Yes Nausea and Vomiting Control Satisfactory: Yes Mental Status Recovered: Yes Pulse Rate: 66 SaO2: 93 Resp Rate: 16 Temperature: 37.3 C Blood Pressure: 113/53
[2018-08-07 14:38] VITALS: BP 125/54
== END 2018-08-07 13:39 | disposition home or self-care (01) ==
LOC: JD.SDS 07:56
PROVIDERS: ATTEND Surgery
DX: K29.50 Unspecified chronic gastritis without bleeding (principal); K20.0 Eosinophilic esophagitis; K44.9 Diaphragmatic hernia without obstruction or gangrene; R19.7 Diarrhea, unspecified; D12.0 Benign neoplasm of cecum; D12.5 Benign neoplasm of sigmoid colon; D12.3 Benign neoplasm of transverse colon; K63.5 Polyp of colon; K57.30 Diverticulosis of large intestine without perforation or abscess without bleeding; K64.0 First degree hemorrhoids; I10 Essential (primary) hypertension; E66.9 Obesity, unspecified; Z68.33 Body mass index [BMI] 33.0-33.9, adult; E78.00 Pure hypercholesterolemia, unspecified; I25.10 Atherosclerotic heart disease of native coronary artery without angina pectoris; K21.9 Gastro-esophageal reflux disease without esophagitis; Z86.010 Personal history of colon polyps; Z79.82 Long term (current) use of aspirin; Z79.02 Long term (current) use of antithrombotics/antiplatelets; Z79.899 Other long term (current) drug therapy; Z88.6 Allergy status to analgesic agent; Z88.1 Allergy status to other antibiotic agents; Z88.5 Allergy status to narcotic agent
CPT/HCPCS: 43239; 45380; 88305; J2001; J2704; J3010; J7120; 00811

== ENCOUNTER 2021-11-28 02:48 | Inpatient (IN) | payer MEDICARE, BC ==
[2021-11-28] MEDS ORDERED: Lactated Ringers 1,000 ML IV ONE (03:09)
[2021-11-28] MEDS ORDERED: Ondansetron 4 MG/2 ML SDV IVPUSH ONE ×2 (03:09→04:10)
[2021-11-28] MEDS ORDERED: Magnesium Sulfate/Water 4 GM in Premix Bag 1 BAG IV ONE (04:02)
[2021-11-28] MEDS: Potassium Chloride 10 MEQ in Premix Bag 1 BAG IV SCH ×4 (04:11→07:36)
[2021-11-28] MEDS ORDERED: Sodium Chloride 0.9% 1,000 ML IV SCH (04:15)
[2021-11-28] MEDS ORDERED: Potassium Chloride 20 MEQ Tab.ER PO ONE (05:31)
[2021-11-28] MEDS ORDERED: Metoclopramide 10 MG/2 ML SDV IVPUSH ONE (06:41)
[2021-11-28] MEDS ORDERED: diphenhydrAMINE 50 MG/ML SDV IVPUSH ONE (06:41)
[2021-11-28] MEDS ORDERED: Acetaminophen 325 MG Tab PO PRN (08:10)
[2021-11-28] MEDS ORDERED: LORazepam 2 MG/ML SDV IV PRN (08:10)
[2021-11-28] MEDS: NS + KCl 20mEq/L 1,000 ML IV SCH ×2 (09:59→23:21)
[2021-11-28] MEDS ORDERED: Docusate Sodium 100 MG Cap PO PRN (10:00)
[2021-11-28] MEDS: Metoprolol Succinate 25 MG Tab.ER PO SCH (10:19)
[2021-11-28] MEDS: Aspirin 81 MG Tab.Chew PO SCH (10:20)
[2021-11-28] MEDS: Sertraline 50 MG Tab PO SCH (10:20)
[2021-11-28] MEDS: Potassium Chloride 20 MEQ Tab.ER PO SCH ×2 (12:18→17:38)
[2021-11-29] MEDS: Metoprolol Succinate 25 MG Tab.ER PO SCH (08:37)
[2021-11-29] MEDS: Enoxaparin 40 MG/0.4 ML Syringe SUBCUT SCH (08:37)
[2021-11-29] MEDS: Potassium Chloride 20 MEQ Tab.ER PO SCH ×2 (08:37→20:40)
[2021-11-29] MEDS: Rosuvastatin 10 MG Tab PO SCH (08:37)
[2021-11-29] MEDS: Sertraline 50 MG Tab PO SCH (08:37)
[2021-11-29] MEDS: Aspirin 81 MG Tab.Chew PO SCH (08:39)
[2021-11-29] MEDS: Pantoprazole 40 MG Tab.CR PO SCH (08:46)
[2021-11-29] MEDS ORDERED: Calcium Carbonate 500 MG Tab.Chew PO ONE (11:25)
[2021-11-29] MEDS ORDERED: Calcium Carbonate 500 MG Tab.Chew PO PRN (11:30)
[2021-11-29] MEDS: NS + KCl 20mEq/L 1,000 ML IV SCH (12:57)
[2021-11-29] MEDS ORDERED: Alum Hydrox/Mag Hydrox/Simeth 30 ML, Lidocaine 2% 15 ML PO ONE ×2 (15:00)
[2021-11-29] MEDS ORDERED: NS + KCl 20mEq/L 1,000 ML IV SCH (15:00)
[2021-11-30 08:41] VITALS: BP 143/63; PULSE 58
[2021-11-30] MEDS: Pantoprazole 40 MG Tab.CR PO SCH (08:42)
[2021-11-30] MEDS: Potassium Chloride 20 MEQ Tab.ER PO SCH (08:42)
[2021-11-30] MEDS: Rosuvastatin 10 MG Tab PO SCH (08:42)
[2021-11-30] MEDS: Metoprolol Succinate 25 MG Tab.ER PO SCH (08:42)
[2021-11-30] MEDS: Aspirin 81 MG Tab.Chew PO SCH (08:43)
[2021-11-30] MEDS: Enoxaparin 40 MG/0.4 ML Syringe SUBCUT SCH (08:43)
[2021-11-30] MEDS: Sertraline 50 MG Tab PO SCH (08:43)
== END 2021-11-30 18:51 | disposition home or self-care (01) | DRG 641 ==
LOC: JD.ED 02:48 → JD.ICU 07:41
PROVIDERS: ADMIT Internal Medicine; ATTEND Internal Medicine
DX: R11.0 Nausea (principal); E87.6 Hypokalemia; N39.0 Urinary tract infection, site not specified; I47.1 Supraventricular tachycardia; I25.10 Atherosclerotic heart disease of native coronary artery without angina pectoris; E78.5 Hyperlipidemia, unspecified; I25.2 Old myocardial infarction; K57.90 Diverticulosis of intestine, part unspecified, without perforation or abscess without bleeding; Z20.822 Contact with and (suspected) exposure to COVID-19; Z66 Do not resuscitate; K21.9 Gastro-esophageal reflux disease without esophagitis; I10 Essential (primary) hypertension; M10.9 Gout, unspecified; F32.A Depression, unspecified; Z79.02 Long term (current) use of antithrombotics/antiplatelets; M1A.9XX0 Chronic gout, unspecified, without tophus (tophi); F32.89 Other specified depressive episodes; Z88.1 Allergy status to other antibiotic agents; Z88.5 Allergy status to narcotic agent; E66.01 Morbid (severe) obesity due to excess calories; Z68.36 Body mass index [BMI] 36.0-36.9, adult; E86.0 Dehydration; E87.1 Hypo-osmolality and hyponatremia; E83.42 Hypomagnesemia; E87.2 Acidosis; I50.9 Heart failure, unspecified; K42.9 Umbilical hernia without obstruction or gangrene; H91.90 Unspecified hearing loss, unspecified ear; I11.0 Hypertensive heart disease with heart failure; E78.00 Pure hypercholesterolemia, unspecified; H54.7 Unspecified visual loss; Z88.8 Allergy status to other drugs, medicaments and biological substances; Z79.82 Long term (current) use of aspirin; Z79.899 Other long term (current) drug therapy; Z90.49 Acquired absence of other specified parts of digestive tract; Z98.49 Cataract extraction status, unspecified eye
CPT/HCPCS: 36415; 71045; 71045-26; 74176; 74176-26; 80048; 80053; 82009; 83605; 83690; 83735; 85025; 87045; 87046; 87493; 87899; 93005; 96361; 96365; 96366; 96368; 96375; 96376; 97161-GP; 99285-25; A9270-GY; J1200; J1650; J2405; J2765; J3475; J3480; J7030; J7120; U0002

== ENCOUNTER 2022-01-03 20:50 | Emergency (ER) | payer MEDICARE, BC ==
[2022-01-03 21:05] VITALS: BP 172/76; PULSE 68
[2022-01-03] MEDS ORDERED: Lactated Ringers 1,000 ML IV SCH (21:30)
[2022-01-03] MEDS ORDERED: Ondansetron 4 MG Tab.DIS PO ONE ×2 (23:09→23:10)
[2022-01-03] MEDS ORDERED: Magnesium Oxide 400 MG Tab PO ONE (23:11)
== END 2022-01-03 23:15 | disposition home or self-care (01) ==
LOC: JD.ED 20:50
DX: R11.2 Nausea with vomiting, unspecified (principal); I25.10 Atherosclerotic heart disease of native coronary artery without angina pectoris; E78.00 Pure hypercholesterolemia, unspecified; I25.2 Old myocardial infarction; K21.9 Gastro-esophageal reflux disease without esophagitis; E66.9 Obesity, unspecified; Z68.36 Body mass index [BMI] 36.0-36.9, adult; Z88.5 Allergy status to narcotic agent; Z88.8 Allergy status to other drugs, medicaments and biological substances; Z88.1 Allergy status to other antibiotic agents; Z79.82 Long term (current) use of aspirin; Z79.899 Other long term (current) drug therapy
CPT/HCPCS: 36415; 80053; 81001; 83690; 83735; 87086; 96360; 96361; 99284-25; A9270-GY; J7120

== ENCOUNTER 2023-12-01 18:00 | Emergency (ER) | payer MEDICARE, BC ==
[2023-12-01 18:16] VITALS: BP 137/111; PULSE 69
[2023-12-01] MEDS: Ondansetron 4 MG/2 ML SDV IVPUSH ONE (19:05)
[2023-12-01 19:06] LABS: BASOPHILS ABSOLUTE AUTO 0.1 K/mm3 (0.0-0.2); BASOPHILS PERCENT AUTO 0.9 % (0.0-1.0); EOSINOPHILS ABSOLUTE AUTO 0.1 K/mm3 (0.0-0.4); EOSINOPHILS PERCENT AUTO 1.7 % (0.0-6.0); HEMATOCRIT 41.6 % (37.0-47.0); HEMOGLOBIN 14.2 gm/dl (12.0-16.0); IMMATURE GRAN ABSOLUTE AUTO 0.03 K/mm3 (0.00-0.05); IMMATURE GRAN PERCENT AUTO 0.5 % (0.0-0.4); LYMPHOCYTES ABSOLUTE AUTO 0.8 K/mm3 (1.0-4.8); LYMPHOCYTES PERCENT AUTO 13.4 % (24.0-44.0); MEAN CORPUSCULAR HEMOGLOBIN 30.7 pg (28.0-32.0); MEAN CORPUSCULAR HGB CONC 34.1 g/dl (32.0-36.0); MEAN PLATELET VOLUME 9.4 fl (9.4-12.3); MONOCYTES ABSOLUTE AUTO 0.4 K/mm3 (0.0-0.8); MONOCYTES PERCENT AUTO 7.7 % (0.0-8.0); NEUTROPHILS ABSOLUTE AUTO 4.3 K/mm3 (1.8-7.7); NEUTROPHILS PERCENT AUTO 75.8 % (41.0-71.0); PLATELET COUNT,PLT 206 K/mm3 (150-400); RED BLOOD CELL COUNT 4.62 M/mm3 (4.10-5.30); WHITE BLOOD CELL COUNT,WBC 5.73 K/mm3 (3.9-11.3)
[2023-12-01] MEDS: Sodium Chloride 0.9% 1,000 ML IV SCH (19:06)
[2023-12-01] MEDS: Sodium Chloride 0.9% 10 ML Syringe FLUSH PRN (19:07)
[2023-12-01 19:29] LABS: A/G RATIO 1.1 (1-2); ALBUMIN 3.9 g/dl (3.4-5.0); ANION GAP 15.9 (5-15); BILIRUBIN TOTAL 0.9 mg/dL (0.2-1.0); BUN/CREATININE RATIO 9.3 (14-18); C-REACTIVE PROTEIN 0.15 mg/dL (<0.30); CALCIUM 8.9 mg/dL (8.5-10.1); CREATININE 1.4 mg/dL (0.55-1.02); EST CRCL DRUG DOSING (CG) 26.5 mL/min; MAGNESIUM 1.5 mg/dL (1.8-2.4); POTASSIUM,K 3.9 mEq/L (3.5-5.1); PROTEIN TOTAL,TP 7.5 g/dl (6.4-8.2)
[2023-12-01] MEDS: Magnesium Sulfate/Water 2 GM in Premix Bag 1 BAG IV ONE (19:52)
[2023-12-01 19:56] LABS: APPEARANCE,URINE CLEAR (Clear); BILIRUBIN,URINE 1+ (Negative); COLOR,URINE YELLOW (Yellow); GLUCOSE,URINE NEGATIVE (Negative); KETONES,URINE 2+ (Negative); LEUKOCYTE ESTERASE,URINE 1+ (Negative); NITRITE,URINE NEGATIVE (Negative); OCCULT BLOOD,URINE 1+ (Negative); PH,URINE 5.5 (5.0-8.0); PROTEIN,URINE NEGATIVE (Negative); UROBILINOGEN,URINE 0.2 (0.2-1.0)
[2023-12-01] MEDS ORDERED: Iopamidol 612 MG/ML 100 ML Bottle IVPUSH ONE (20:07)
[2023-12-01 20:11] LABS: BACTERIA,URINE MODERATE /hpf (FEW); MUCUS,URINE FEW /hpf (FEW); WBC,URINE 20-30 /hpf (0-5)
[2023-12-01 20:12] LABS: HYALINE CASTS,URINE 0-5 /lpf (0-5)
[2023-12-01] MEDS ORDERED: Sodium Chloride 0.9% 100 ML IV SCH (20:15)
[2023-12-01] MEDS: cefTRIAXone 1 GM in Sodium Chloride 0.9% 100 ML IV ONE (21:54)
== END 2023-12-01 22:15 | disposition home or self-care (01) ==
LOC: JD.ED 18:00
DX: N39.0 Urinary tract infection, site not specified (principal); I12.9 Hypertensive chronic kidney disease with stage 1 through stage 4 chronic kidney disease, or unspecified chronic kidney disease; N18.32 Chronic kidney disease, stage 3b; I25.10 Atherosclerotic heart disease of native coronary artery without angina pectoris; I25.2 Old myocardial infarction; K21.9 Gastro-esophageal reflux disease without esophagitis; E66.9 Obesity, unspecified; Z88.5 Allergy status to narcotic agent; Z88.8 Allergy status to other drugs, medicaments and biological substances; Z88.6 Allergy status to analgesic agent; Z88.1 Allergy status to other antibiotic agents; Z79.899 Other long term (current) drug therapy; Z79.82 Long term (current) use of aspirin; Z68.35 Body mass index [BMI] 35.0-35.9, adult
CPT/HCPCS: 36415; 80053; 81001; 83735; 85025; 86140; 96361; 96365; 96366; 96367; 96375; 99284; J0696; J2405; J3475; J3490; J7030; 99283